=== PATIENT | female | born 1990 | race African-American/Black ===

== ENCOUNTER 2016-04-15 16:38 | Emergency (ER) | payer MEDICAID ==
--- NOTE | 2016-04-15 18:16 | ER Document Report ---
ED Medical Screen (RME) - General Chief Complaint: Rectal Bleeding Stated Complaint: BLOOD IN STOOL Notes: 26 yo female c/o rectal bleeding, bright red with BM. + lower abdominal pain after BM. no hx/o constripation. + hemorroids during childbirth. presently 15weeks . no fever, nausea/vomiting. TRAVEL OUTSIDE OF THE [place] IN LAST 30 DAYS: No - Related Data Allergies/Adverse Reactions: No Known Allergies Allergy (Verified 04/15/16 17:21) Past Medical History - Social History Chew tobacco use (# tins/day): No Frequency of alcohol use: None Drug Abuse: None Psychiatric Medical History: Reports: Hx Post Traumatic Stress Disorder Past Surgical History: Reports: Hx Breast Surgery - lumpectomy right breast - Immunizations Hx Diphtheria, Pertussis, Tetanus Vaccination: No Physical Exam - Vital signs Vitals: Temp Pulse Resp BP Pulse Ox 98.4 F 81 14 122/70 99 04/15/16 17:20 04/15/16 17:20 04/15/16 17:20 04/15/16 17:20 04/15/16 17:20 Course - Vital Signs Vital signs: Temp Pulse Resp BP Pulse Ox 98.4 F 81 14 122/70 99 04/15/16 17:20 04/15/16 17:20 04/15/16 17:20 04/15/16 17:20 04/15/16 17:20
--- NOTE | 2016-04-15 18:33 | ER Document Report ---
ED GI Bleed / Rectal Pain - General Chief Complaint: Rectal Bleeding Stated Complaint: BLOOD IN STOOL Time seen by provider: 18:33 Mode of Arrival: Ambulatory Information source: Patient Notes: 26 yo female had rectal bleeding after hard stool today. 15 weeks . Checked with toilet paper and knows that their was no vaginal bleeding. no cramps. does have anal pain. no hx hemorrhoids. TRAVEL OUTSIDE OF THE [place] IN LAST 30 DAYS: No - Related Data Allergies/Adverse Reactions: No Known Allergies Allergy (Verified 04/15/16 17:21) Past Medical History - General Information source: Patient - Social History Smoking Status: Never Smoker Chew tobacco use (# tins/day): No Frequency of alcohol use: None Drug Abuse: None Lives with: Spouse/Significant other Family History: Reviewed & Not Pertinent Patient has suicidal ideation: No Patient has homicidal ideation: No Psychiatric Medical History: Reports: Hx Post Traumatic Stress Disorder Past Surgical History: Reports: Hx Breast Surgery - lumpectomy right breast - Immunizations Hx Diphtheria, Pertussis, Tetanus Vaccination: No Review of Systems - Review of Systems Constitutional: No symptoms reported EENT: No symptoms reported Cardiovascular: No symptoms reported Respiratory: No symptoms reported Gastrointestinal: See HPI Genitourinary: No symptoms reported Female Genitourinary: No symptoms reported Musculoskeletal: No symptoms reported Skin: No symptoms reported Hematologic/Lymphatic: No symptoms reported Neurological/Psychological: No symptoms reported Physical Exam - Vital signs Vitals: Temp Pulse Resp BP Pulse Ox 98.4 F 81 14 122/70 99 04/15/16 17:20 04/15/16 17:20 04/15/16 17:20 04/15/16 17:20 04/15/16 17:20 Interpretation: Normal - General General appearance: Appears well, Alert - HEENT Head: Normocephalic, Atraumatic Eyes: Normal Pupils: PERRL Neck: Supple - Respiratory Respiratory status: No respiratory distress Chest status: Nontender Breath sounds: Normal Chest palpation: Normal - Cardiovascular Rhythm: Regular Heart sounds: Normal auscultation Murmur: No - Abdominal Inspection: Normal Distension: No distension Bowel sounds: Normal Tenderness: Nontender Organomegaly: Mass - gravid uterus, fht 154 - Rectal Tenderness: Yes Hemorrhoids: None Notes: anal fissure in canal with bearing down at 6 o clock - Back Back: Normal, Nontender. No: CVA tenderness - Extremities General upper extremity: Normal inspection, Nontender, Normal color, Normal ROM , Normal temperature General lower extremity: Normal inspection, Nontender, Normal color, Normal ROM , Normal temperature, Normal weight bearing. No: Citlaly's sign - Neurological Neuro grossly intact: Yes Cognition: Normal Orientation: AAOx4 Farnam Coma Scale Eye Opening: Spontaneous Jolie Coma Scale Verbal: Oriented Farnam Coma Scale Motor: Obeys Commands Jolie Coma Scale Total: 15 Speech: Normal Motor strength normal: LUE, RUE, LLE, RLE Sensory: Normal - Psychological Associated symptoms: Normal affect, Normal mood - Skin Skin Temperature: Warm Skin Moisture: Dry Skin Color: Normal Course - Re-evaluation Re-evalutation: 04/15/16 18:49 heart tones 154. hbg normal - Vital Signs Vital signs: Temp Pulse Resp BP Pulse Ox 97.3 F 91 16 114/72 99 04/15/16 19:03 04/15/16 19:03 04/15/16 19:03 04/15/16 19:03 04/15/16 19:03 - Laboratory Result Diagrams: 04/15/16 18:25 Laboratory results interpreted by me: 04/15/16 18:25 WBC 11.9 H Absolute Neutrophils 9.1 H Discharge - Discharge Clinical Impression: Anal fissure, Condition: Good Disposition: HOME, SELF-CARE Instructions: Anal Fissure ([facility]), ([facility]) Additional Instructions: anal fissure that bled will heal to er any conerns Referrals: AILYN AUSTIN MD [Primary Care Provider] - Follow up as needed
[2016-04-15 18:35] LABS: ABSOLUTE BASOPHILS # (AUTO) 0.1 10^3/uL (0.0-0.2); ABSOLUTE EOSINOPHILS # (AUTO) 0.4 10^3/uL (0.0-0.6); ABSOLUTE LYMPHOCYTES (AUTO) 1.8 10^3/uL (0.5-4.7); ABSOLUTE MONOCYTES (AUTO) 0.5 10^3/uL (0.1-1.4); ABSOLUTE NEUT (AUTO) 9.1 10^3/uL (1.7-8.2); BASOPHILS % (AUTO) 0.5 % (0-2); EOSINOPHILS % (AUTO) 3.6 % (0-6); HEMATOCRIT 37.6 % (36.0-47.0); HEMOGLOBIN 12.7 g/dL (12.0-15.5); HGB HCT DIFFERENCE 0.5; LYMPHOCYTES % (AUTO) 15.1 % (13-45); MEAN CORPUSCULAR HEMOGLOBIN 29.4 pg (27.0-33.4); MEAN CORPUSCULAR HGB CONC 33.9 g/dL (32.0-36.0); MEAN CORPUSCULAR VOLUME 87 fl (80-97); MONOCYTES % (AUTO) 4.4 % (3-13); RED BLOOD COUNT 4.33 10^6/uL (3.72-5.28); RED CELL DISTRIBUTION WIDTH 13.9 % (11.5-14.0); SEGMENTED NEUTROPHILS % (AUTO) 76.4 % (42-78); WHITE BLOOD COUNT 11.9 10^3/uL (4.0-10.5)
[2016-04-15 19:04] VITALS: BP 114/72
== END 2016-04-15 19:05 | disposition home or self-care (01) ==
LOC: ER 16:38
DX: O26.92 Pregnancy related conditions, unspecified, second trimester (principal); K60.2 Anal fissure, unspecified; Z3A.15 15 weeks gestation of pregnancy
CPT/HCPCS: 36415; 85025; 99283

== ENCOUNTER → 2016-08-26 | Outpatient (CLI) | payer MEDICAID ==
[2016-08-27 12:49] LABS: ABSOLUTE EOSINOPHILS # (AUTO) 0.3 10^3/uL (0.0-0.6); ABSOLUTE LYMPHOCYTES (AUTO) 1.7 10^3/uL (0.5-4.7); ABSOLUTE MONOCYTES (AUTO) 0.8 10^3/uL (0.1-1.4); ABSOLUTE NEUT (AUTO) 6.8 10^3/uL (1.7-8.2); BASOPHILS % (AUTO) 0.3 % (0-2); EOSINOPHILS % (AUTO) 3.4 % (0-6); HEMATOCRIT 34.9 % (36.0-47.0); HEMOGLOBIN 11.5 g/dL (12.0-15.5); HGB HCT DIFFERENCE -0.4; MEAN CORPUSCULAR HGB CONC 33.1 g/dL (32.0-36.0); MEAN CORPUSCULAR VOLUME 88 fl (80-97); MONOCYTES % (AUTO) 7.9 % (3-13); RED BLOOD COUNT 3.98 10^6/uL (3.72-5.28); RED CELL DISTRIBUTION WIDTH 14.2 % (11.5-14.0); SEGMENTED NEUTROPHILS % (AUTO) 70.4 % (42-78); WHITE BLOOD COUNT 9.7 10^3/uL (4.0-10.5)
[2016-08-27 13:42] LABS: APPEARANCE,URINE CLEAR; BILIRUBIN,URINE NEGATIVE (NEGATIVE); GLUCOSE, URINE NEGATIVE (NEGATIVE); KETONES,URINE NEGATIVE (NEGATIVE); LEUKOCYTE ESTERASE,URINE NEGATIVE (NEGATIVE); NITRITE,URINE NEGATIVE (NEGATIVE); PROTEIN,URINE NEGATIVE (NEGATIVE); URINE SPECIFIC GRAVITY 1.002; UROBILINOGEN,URINE NEGATIVE mg/dL (<2.0)
[2016-08-28 09:33] LABS: URINE BARBITURATES SCREEN NEGATIVE; URINE METHADONE SCREEN NEGATIVE; URINE OPIATES LOW NEGATIVE; URINE PHENCYCLIDINE SCREEN NEGATIVE
[2016-08-28 09:34] LABS: ANION GAP 12 (5-19); BLOOD UREA NITROGEN < 2 mg/dL (7-20); CARBON DIOXIDE 21 mmol/L (22-30); CHLORIDE 106 mmol/L (98-107); CREATININE RESULT 0.48 mg/dL (0.52-1.25); GLUCOSE 89 mg/dL (75-110); POTASSIUM 4.1 mmol/L (3.6-5.0); SODIUM 139.3 mmol/L (137-145)
== END ==
LOC: LC 11:39
PROVIDERS: ATTEND Specialist
PROC: 4A1HXCZ Monitoring of Products of Conception, Cardiac Rate, External Approach (ICD-10-PCS; principal; 2016-08-26)
DX: Z36 Encounter for antenatal screening of mother (principal)
CPT/HCPCS: 36415; 59025; 80048; 80307; 81001; 85025

== ENCOUNTER 2016-09-08 15:50 | Emergency (ER) | payer MEDICAID ==
[2016-09-08 16:38] VITALS: BP 127/88
[2016-09-08] MEDS ORDERED: NORMAL SALINE 1000 ML 1,000 ML IV ONE (17:15)
--- NOTE | 2016-09-08 17:31 | ER Document Report ---
ED Medical Screen (RME) - General Chief Complaint: Nausea/Vomiting/Diarrhea Stated Complaint: VOMITING,DIARRHEA Time Seen by Provider: 09/08/16 17:06 Mode of Arrival: Ambulatory Information source: Patient Notes: This is a 26-year-old female at 35 weeks gestation with twins who presents with vomiting and diarrhea for the past 10-14 days. She denies any fevers. She denies any abdominal pain although she does have lower back pressure today. No vaginal bleeding or loss of fluid. Good movement today. No fevers or chills. However she states she cannot tolerate anything by mouth. I have greeted and performed a rapid initial assessment of this patient. A comprehensive ED assessment and evaluation of the patient, analysis of test results and completion of the medical decision making process will be conducted by additional ED providers. TRAVEL OUTSIDE OF THE [place] IN LAST 30 DAYS: No - Related Data Allergies/Adverse Reactions: No Known Allergies Allergy (Verified 04/15/16 17:21) Past Medical History Renal/ Medical History: Denies: Hx Peritoneal Dialysis Psychiatric Medical History: Reports: Hx Post Traumatic Stress Disorder Past Surgical History: Reports: Hx Breast Surgery - lumpectomy right breast - Immunizations Hx Diphtheria, Pertussis, Tetanus Vaccination: No Physical Exam - Vital signs Vitals: Temp Pulse Resp BP Pulse Ox 98.9 F 120 H 20 127/88 H 99 09/08/16 16:33 09/08/16 16:33 09/08/16 16:33 09/08/16 16:33 09/08/16 16:33 - General General appearance: Appears well In distress: None - Respiratory Respiratory status: No respiratory distress. No: Retractions Breath sounds: Normal. No: Rales, Rhonchi, Wheezing - Cardiovascular Rhythm: Tachycardia Heart sounds: Normal auscultation, S1 appreciated, S2 appreciated - Abdominal Inspection: Gravid female Distension: No distension Bowel sounds: Normal Tenderness: Nontender Course - Re-evaluation Re-evalutation: 09/08/16 17:29 Case discussed with OB Dr. Zaragoza who agrees to have patient evaluated up on labor and delivery. - Vital Signs Vital signs: Temp Pulse Resp BP Pulse Ox 98.9 F 158 H 20 127/88 H 99 09/08/16 16:33 09/08/16 16:37 09/08/16 16:33 09/08/16 16:37 09/08/16 16:33 Doctor's Discharge - Discharge Clinical Impression: Nausea vomiting and diarrhea, Dehydration Twin gestation in third trimester Qualifiers: Multiple gestation type: unspecified Qualified Code(s): O30.003 - Twin , unspecified number of placenta and unspecified number of amniotic sacs, third trimester Condition: Stable Disposition: LABOR CHECK Additional Instructions: Proceed to Labor and Delivery unit now for IV fluids and further monitoring.
[2016-09-08 17:42] LABS: ABSOLUTE BASOPHILS # (AUTO) 0.1 10^3/uL (0.0-0.2); ABSOLUTE EOSINOPHILS # (AUTO) 0.1 10^3/uL (0.0-0.6); ABSOLUTE LYMPHOCYTES (AUTO) 2.7 10^3/uL (0.5-4.7); ABSOLUTE MONOCYTES (AUTO) 1.1 10^3/uL (0.1-1.4); ABSOLUTE NEUT (AUTO) 7.5 10^3/uL (1.7-8.2); BASOPHILS % (AUTO) 0.4 % (0-2); EOSINOPHILS % (AUTO) 1.3 % (0-6); HEMOGLOBIN 12.9 g/dL (12.0-15.5); HGB HCT DIFFERENCE -1.3; LYMPHOCYTES % (AUTO) 23.3 % (13-45); MEAN CORPUSCULAR HEMOGLOBIN 28.3 pg (27.0-33.4); MEAN CORPUSCULAR HGB CONC 32.2 g/dL (32.0-36.0); MEAN CORPUSCULAR VOLUME 88 fl (80-97); MONOCYTES % (AUTO) 9.8 % (3-13); RED BLOOD COUNT 4.55 10^6/uL (3.72-5.28); RED CELL DISTRIBUTION WIDTH 14.6 % (11.5-14.0); SEGMENTED NEUTROPHILS % (AUTO) 65.2 % (42-78); WHITE BLOOD COUNT 11.6 10^3/uL (4.0-10.5)
[2016-09-08 17:48] LABS: APPEARANCE,URINE CLEAR; BILIRUBIN,URINE NEGATIVE (NEGATIVE); GLUCOSE, URINE NEGATIVE (NEGATIVE); KETONES,URINE NEGATIVE (NEGATIVE); LEUKOCYTE ESTERASE,URINE MODERATE (NEGATIVE); NITRITE,URINE NEGATIVE (NEGATIVE); PROTEIN,URINE NEGATIVE (NEGATIVE); URINE SPECIFIC GRAVITY 1.001; UROBILINOGEN,URINE NEGATIVE mg/dL (<2.0)
[2016-09-08 18:09] LABS: ALANINE AMINOTRANSFERASE 18 U/L (9-52); ALBUMIN 3.3 g/dL (3.5-5.0); ALKALINE PHOSPHATASE 201 U/L (38-126); ANION GAP 9 (5-19); ASPARTATE AMINO TRANSFERASE 27 U/L (14-36); BILIRUBIN,DIRECT 0.2 mg/dL (0.0-0.4); BILIRUBIN,TOTAL 0.4 mg/dL (0.2-1.3); BLOOD UREA NITROGEN 2 mg/dL (7-20); CALCIUM 9.3 mg/dL (8.4-10.2); CARBON DIOXIDE 26 mmol/L (22-30); CHLORIDE 104 mmol/L (98-107); CREATININE RESULT 0.64 mg/dL (0.52-1.25); GLUCOSE 72 mg/dL (75-110); POTASSIUM 4.2 mmol/L (3.6-5.0); SODIUM 139.4 mmol/L (137-145); TOTAL PROTEIN 6.5 g/dL (6.3-8.2)
== END 2016-09-08 17:30 | disposition admitted as inpatient to this hospital (09) ==
LOC: ER 15:50
DX: O30.003 Twin pregnancy, unspecified number of placenta and unspecified number of amniotic sacs, third trimester (principal); O21.2 Late vomiting of pregnancy; E86.0 Dehydration; Z3A.35 35 weeks gestation of pregnancy
CPT/HCPCS: 36415; 80053; 81001; 85025; 99283

== ENCOUNTER 2016-09-08 17:37 | Outpatient (CLI) | payer MEDICAID ==
[2016-09-08] MEDS ORDERED: RINGERS SOLUTION,LACTATED 1,000 ML IV PRN ×2 (18:26→18:27)
[2016-09-08 19:10] LABS: URINE BARBITURATES SCREEN NEGATIVE; URINE METHADONE SCREEN NEGATIVE; URINE OPIATES LOW NEGATIVE; URINE PHENCYCLIDINE SCREEN NEGATIVE
--- NOTE | 2016-09-08 19:44 | Non Stress Test Report ---
Non Stress Test Datetime Report Generated by CPN: 09/08/2016 19:44 DEMOGRAPHIC Test Number: 1 EGA NST: 34.6 INDICATION Indication for Study: Ordered by Provider MONITORING Monitor Explained: Monitor Explained; Test Explained; Patient Verbalized Understanding Time on Monitor: 09/08/2016 17:57 Time off Monitor: 09/08/2016 19:08 NST Duration: 71 NST INTERVENTIONS NST Interventions: PO Hydration; IV Fluids; Reposition Patient Physician Notified NST: DrStephanie Nik BABY A: [id number] BABY A Movement : Present Contraction Frequency : occasional FHR Baseline : 140 Accelerations : 15X15 Decelerations : Prolonged Variability : Moderate 6-25bpm NST Review: Meets Criteria for Reactive NST NST Review and Verified By : Oneida Lara RN/Rodney Rodrigez RN NST Results: Reactive BABY B Movement: Present FHR Baseline: 135 Accelerations: 15X15 Decelerations: None Variability: Moderate 6-25bpm NST Review: Meets Criteria for Reactive NST NST Reviewed And Verified By: Rodney Rodrigez RN NST Results: Reactive NST REPORT Report Trigger: Send Report
== END 2016-09-08 19:25 | disposition home or self-care (01) ==
LOC: LC 17:37
PROVIDERS: ATTEND Obstetrics & Gynecology
PROC: 4A1HXCZ Monitoring of Products of Conception, Cardiac Rate, External Approach (ICD-10-PCS; principal; 2016-09-08)
DX: O76 Abnormality in fetal heart rate and rhythm complicating labor and delivery (principal); O30.003 Twin pregnancy, unspecified number of placenta and unspecified number of amniotic sacs, third trimester; Z3A.35 35 weeks gestation of pregnancy
CPT/HCPCS: 80307

== ENCOUNTER 2016-09-20 08:15 | Inpatient (IN) | payer MEDICAID ==
[2016-09-20 08:43] LABS: APPEARANCE,URINE CLOUDY; BILIRUBIN,URINE NEGATIVE (NEGATIVE); GLUCOSE, URINE NEGATIVE (NEGATIVE); KETONES,URINE NEGATIVE (NEGATIVE); LEUKOCYTE ESTERASE,URINE LARGE (NEGATIVE); NITRITE,URINE NEGATIVE (NEGATIVE); PROTEIN,URINE NEGATIVE (NEGATIVE); URINE SPECIFIC GRAVITY 1.001; UROBILINOGEN,URINE NEGATIVE mg/dL (<2.0)
[2016-09-20] MEDS ORDERED: OXYTOCIN/NORMAL SALINE 0 UNIT/0 ML RTUINJ ONE (08:43)
[2016-09-20] MEDS ORDERED: LIDOCAINE 1% INJ-PF (10 MG/ML) 30 ML SDV ONE (08:43)
[2016-09-20] MEDS ORDERED: MISOPROSTOL 0.2 MG TABLET ONE ×2 (08:43→12:06)
[2016-09-20 09:00] LABS: URINE BARBITURATES SCREEN NEGATIVE; URINE METHADONE SCREEN NEGATIVE; URINE OPIATES LOW NEGATIVE; URINE PHENCYCLIDINE SCREEN NEGATIVE
[2016-09-20] MEDS ORDERED: RINGERS SOLUTION,LACTATED 1,000 ML IV PRN (09:02)
[2016-09-20] MEDS ORDERED: MISOPROSTOL 0.2 MG TABLET PR PRN (09:05)
[2016-09-20] MEDS ORDERED: OXYTOCIN/NORMAL SALINE 1,000 ML IV PRN ×2 (09:05→12:39)
[2016-09-20] MEDS ORDERED: LIDOCAINE 1% INJ-PF (10 MG/ML) 30 ML SDV INJ ONE (09:07)
[2016-09-20 09:31] LABS: ABSOLUTE BASOPHILS # (AUTO) 0.1 10^3/uL (0.0-0.2); ABSOLUTE EOSINOPHILS # (AUTO) 0.1 10^3/uL (0.0-0.6); ABSOLUTE MONOCYTES (AUTO) 0.7 10^3/uL (0.1-1.4); EOSINOPHILS % (AUTO) 1.5 % (0-6); HEMATOCRIT 43.3 % (36.0-47.0); HGB HCT DIFFERENCE -1.3; LYMPHOCYTES % (AUTO) 29.9 % (13-45); MEAN CORPUSCULAR HEMOGLOBIN 28.8 pg (27.0-33.4); MEAN CORPUSCULAR HGB CONC 32.4 g/dL (32.0-36.0); MEAN CORPUSCULAR VOLUME 89 fl (80-97); MONOCYTES % (AUTO) 7.1 % (3-13); RED BLOOD COUNT 4.87 10^6/uL (3.72-5.28); SEGMENTED NEUTROPHILS % (AUTO) 60.5 % (42-78); WHITE BLOOD COUNT 9.9 10^3/uL (4.0-10.5)
[2016-09-20] MEDS ORDERED: BUPIVACAINE HCL 0.25 % INJ/PF (2.5 MG/1 ML) 30 ML VIAL INFIL ONE (09:37)
[2016-09-20] MEDS ORDERED: EPHEDRINE SULFATE INJ 50 MG/1 ML AMPULE IV PRN (09:37)
[2016-09-20] MEDS ORDERED: FENTANYL/BUPIVACAINE/NS/PF 100 ML EPI PRN (09:37)
[2016-09-20] MEDS ORDERED: BENZOIN/ALOE VERA/STORAX/TOLU TINCTURE 60 ML TP PRN (09:37)
[2016-09-20] MEDS ORDERED: FENTANYL CITRATE INJ/PF 100 MCG/2 ML AMPUL INJ PRN (09:44)
[2016-09-20] MEDS ORDERED: FENTANYL CITRATE INJ/PF 100 MCG/2 ML AMPUL ONE (09:44)
[2016-09-20] MEDS ORDERED: PHENYLEPHRINE HCL INJ/PF 10 MG/1 ML SDV ONE ×2 (09:44→10:25)
[2016-09-20] MEDS ORDERED: EPHEDRINE SULFATE INJ 50 MG/1 ML AMPULE ONE (09:44)
[2016-09-20] MEDS ORDERED: BUPIVACAINE HCL 0.25 % INJ/PF (2.5 MG/1 ML) 30 ML VIAL ONE (09:45)
[2016-09-20] MEDS ORDERED: FENTANYL/BUPIVACAINE/NS/PF 0 MCG/0 ML RTUINJ EPI ONE (09:45)
[2016-09-20] MEDS ORDERED: CEFAZOLIN 2 GM/D5W RTU 2 GM/50 ML RTUPB IV ONE (11:52)
[2016-09-20] MEDS ORDERED: OXYTOCIN 10 UNIT/ML VIAL ONE (12:05)
[2016-09-20 12:24] LABS: ARTERIAL BLOOD BASE EXCESS -2.3 mmol/L; ARTERIAL BLOOD O2 SATURATION 38.1 % (94-98)
[2016-09-20] MEDS ORDERED: PROMETHAZINE HCL INJ 25 MG/1 ML VIAL IV PRN ×3 (12:29→12:39)
[2016-09-20] MEDS ORDERED: MORPHINE SULFATE 10 MG/ML INJ IV PRN (12:29)
[2016-09-20] MEDS ORDERED: FENTANYL CITRATE INJ/PF 100 MCG/2 ML AMPUL IV PRN ×3 (12:29)
[2016-09-20] MEDS ORDERED: DIPHENHYDRAMINE HCL 50 MG/ML VIAL IV PRN (12:29)
[2016-09-20] MEDS ORDERED: MEPERIDINE HCL/PF INJ 25 MG/1 ML DISP.SYRIN IV PRN (12:29)
[2016-09-20] MEDS ORDERED: OXYCODONE-ACETAMINOPHEN 5-325 MG TABLET PO PRN ×3 (12:29→12:39)
[2016-09-20] MEDS ORDERED: CEFAZOLIN 2 GM/D5W RTU 50 ML IV ONE (12:38)
[2016-09-20] MEDS ORDERED: ACETAMINOPHEN 325 MG TABLET PO PRN (12:39)
[2016-09-20] MEDS ORDERED: ACETAMINOPHEN 100 ML IV PRN (12:39)
[2016-09-20] MEDS ORDERED: MEASLES,MUMPS&RUBELLA VACC/PF 0.5 ML VIAL SUBCUT PRN (12:39)
[2016-09-20] MEDS ORDERED: DIPH/PERTUSS(ACELL)/TETANUS VAC/PF 0.5 ML SYR (>=10YO) IM PRN (12:39)
[2016-09-20] MEDS ORDERED: SIMETHICONE 80 MG TAB.CHEW PO PRN (12:39)
[2016-09-20] MEDS ORDERED: MEPERIDINE HCL/PF INJ 25 MG/1 ML DISP.SYRIN ONE (12:53)
--- NOTE | 2016-09-20 13:09 | OPERATIVE REPORT E ---
Operative Report NAME: RADHA NAVAS : 1990 AGE: 26Y DATE OF SURGERY: ROOM: LR200 PREOPERATIVE DIAGNOSES: 1. Intrauterine at 36 weeks and 6 days. 2. DI/DI twin gestation. 3. Malpresentation of twin B. POSTOPERATIVE DIAGNOSES: 1. Intrauterine at 36 weeks and 6 days. 2. DI/DI twin gestation. 3. Malpresentation of twin B. OPERATION: 1. Low transverse hysterotomy. 2. section for twin B. SURGEON: RICARDO ZELAYA M.D. ANESTHESIA: DR. RODRIGUEZ WITH SPINAL. FINDINGS: Female in transverse left presentation with the right leg in the vaginal canal. ESTIMATED BLOOD LOSS: 800 mL for both section and vaginal delivery. SPECIMENS REMOVED: Placenta x2. INDICATIONS: This is a patient that came in in active labor with a DI/DI twin gestation. The first twin, twin A, delivered without difficulty vaginally. Awaiting twin B's arrival it was noted that there was a malpresentation. The patient had declined epidural previously. Was not able to manipulate the fetus into a proper position. We then took the patient to the OR, and patient received a spinal anesthesia. Once again, attempted manipulation of the fetus B into a presentation that would be adequate for delivery; however, the fetus still remained in a grossly transverse left position with a leg up to the hip in the vagina. PROCEDURE: The patient was taken to the operating room, prepared and draped in a normal sterile fashion in a supine position with a leftward *------*. Transverse skin incision was made with a scalpel and carried through the underlying layer of fascia. With the same scalpel the fascia was incised in the midline and extended laterally with surgeon finger fracture. The rectus muscle was divided. The peritoneal cavity was entered bluntly with surgeon finger fracture. Hysterotomy was nicked and extended laterally with surgeon finger fracture. The 's first foot was grasped, and an amniotomy was completed, and the second foot was grasped. The infant was then delivered using normal procedure, and it was then handed off to the awaiting pediatricians. After the cord was cut, cord gases were collected, cord blood was collected, and the placentas were removed manually. The uterus was closed with #0 Monocryl in a running locked fashion. A second layer of the same suture was used to imbricate to ensure hemostasis. The rectus muscle and peritoneum were reapproximated with 2-0 chromic mattress stitches. The fascia was closed with #0 Vicryl; the subcutaneous layer with plain catgut, and the skin was closed with 4-0 Vicryl. Patient tolerated the procedure well. Sponge, lap, and needle counts were correct x2. DICTATING PHYSICIAN: RICARDO ZELAYA M.D. [id number] [facility]#: [id number] ID: [id number] JOB#: [id number] ACCT: [id number] cc:RICARDO ZELAYA M.D. >
[2016-09-20] MEDS ORDERED: ACETAMINOPHEN 100 ML IV ONE (13:56)
--- NOTE | 2016-09-20 14:55 | Admission Physical ---
Datetime Report Generated by CPN: 09/20/2016 14:55 CURRENT ADMISSION Chief Complaint: Uterine Contractions Indication for Induction: Not Applicable Admit Impression- Other: twin gestation di/di Admit Plan: Admit to Unit; Initiate Labor Protocol Admit Plan- Other: ready for emergent operative delivery if necessary for either twin ALLERGIES Medication Allergies: No Medication Allergies: No Medication Allergies: No Known Allergies (09/20/2016) Medication Allergies: No Known Allergies (09/08/2016) Medication Allergies: No Known Allergies (04/15/2016) Latex: No Latex Allergies Latex: No Latex Allergies Food Allergies: n/a OBSTETRICAL HISTORY EDC: 10/14/2016 00:00 EDC: 10/03/2016 00:00 : 4 : 4 Para: 2 Para: 2 Term: 2 Term: 2 : 0 : 0 SAB: 1 SAB: 1 IAB: 0 IAB: 0 Ectopic: 0 Ectopic: 0 Livin Livin Cesareans: 0 Cesareans: 0 VBACs: 0 VBACs: 0 Multiple Births: 0 Multiple Births: 0 Gestational Diabetes: No Rh Sensitization: No Incompetent Cervix: No BENTON: No Infertility: No ART Treatment: No Uterine Anomaly: No IUGR: No Hx Previous C/S: No Macrosomia: No Hx Loss/Stillborn: No PIH: No Hx : No Placenta Previa/Abruption: No Depression/PP Depression: No PTL/PROM: No Post Hemorrhage: No Current Procedures: Ultrasound SEE RECORDS Alcohol: No Marijuana : No Cocaine: No Other Illicit Drugs: No Cigarettes: Never Smoker. [id number] MEDICAL HISTORY Diabetes: No Blood Transfusion: No Pulmonary Disease (Asthma, TB): No Breast Disease: No Hypertension: No Internet Specialist Surgery: No Heart Disease: No Hosp/Surgery: No Autoimmune Disorder: No Anesthetic Complications: No Kidney Disease: No Abnormal Pap Smear: No Neuro/Epilepsy: No Psychiatric Disorders: No Other Medical Diseases: No Hepatitis/Liver Disease: No Significant Family History: No Varicosities/Phlebitis: No Trauma/Violence : No Thyroid Dysfunction: No INFECTIOUS HISTORY Gonorrhea: No Genital Herpes: No Chlamydia: No Tuberculosis: No Syphilis: No Hepatitis: No HIV/AIDS Exposure: No Rash or Viral Illness: No HPV: No PHYSICAL EXAM General: Normal HEENT: Normal Neurologic: Normal Thyroid: Normal Heart: Normal Lungs: Normal Breast: Normal Back: Normal Abdomen: Normal Genitourinary Exam: Normal Extremities: Normal DTRs: Normal Pelvic Type: Adequate Vital Signs: Reviewed VAGINAL EXAM Dilatation: 8 Effacement: 100 Station: 0 MEMBRANES Pooling: Negative Membranes: Intact FETUS A EGA: 36.4 Monitoring: External US FHR- Baseline: 140 Variability: Moderate 6-25bpm Accelerations: 10X10 Decelerations: None FHR Category: Category I Estimated Weight (gm): 3500 Presentation: Vertex FETUS B Monitoring: External US Monitoring: External US Monitoring: External US Monitoring: External US Monitoring: External US Monitoring: External US Monitoring: External US Monitoring: External US Variability: Moderate 6-25bpm Accelerations: 10X10 Decelerations: None FHR Category: Category I Estimated Weight (gm): 3400 Presentation: Vertex PLANS FOR LABOR AND DELIVERY Labor and Delivery: None Pain Management: Epidural Feeding Preference: Formula Benefit of Breast Feed Discussed: Yes Circumcision: Yes INFORMED CONSENT Signature: with User ID: [email or web address]
--- NOTE | 2016-09-20 15:47 | Delivery Summary ---
Del Sum A-C Datetime Report Generated by CPN: 09/20/2016 15:47 DELIVERY PERSONNEL DELIVERY PERSONNEL: [phone] DELIVERY PERSONNEL: [phone] Delivery Doctor:: Pamela Amador MD Anesthesiologist:: Sara Milner MD Labor and Delivery Nurse:: Marine Bynum RNrestaurant worker Nurse:: Dasha Brenner RN Pipe Insulator Helper:: Tereza Weller RN Garbage Stoker:: Ricco Vitale MD Nursery Nurse:: Kaley Flores RN Nursery Nurse:: Alanna Servin RN Floor Scrubber/CUSTOMER RELATIONS SPECIALIST: Lola Ramirez CST Floor Scrubber/CUSTOMER RELATIONS SPECIALIST: Paul De León CST MATERNAL INFORMATION Delivery Anesthesia: Spinal Medications After Delivery: Pitocin Drip 20 Units/1000ml NSS Meds After Delivery Comment: Cytotec 400mcg PO by ENVIRONMENTAL COMPLIANCE ENGINEER Estimated Blood Loss (ml): 800 Maternal Complications: None LABOR SUMMARY EDC: 10/14/2016 00:00 EDC: 10/03/2016 00:00 No. Babies in Womb: 2 No. Babies in Womb: 2 Attempted: No Labor Anesthesia: None LABOR INFORMATION Reason for Induction: Not Applicable Onset of Labor: 09/20/2016 06:30 Complete Dilatation: 09/20/2016 10:57 Oxytocin: N/A Group B Beta Strep: Negative Antibiotics # of Doses: 0 Steroids Given: None Reason Steroids Not Administered: Not Applicable MEMBRANES Membranes Rupture Method: Spontaneous Rupture of Membranes: 09/20/2016 06:30 Length of Rupture (hr): 4.68 Amniotic Fluid Color: Clear Amniotic Fluid Amount: Scant Amniotic Fluid Odor: Normal STAGES OF LABOR Stage 1 hr: 4 Stage 1 min: 27 Stage 2 hr: 0 Stage 2 min: 14 Stage 3 hr: 0 Stage 3 min: 52 Total Time in Labor hr: 5 Total Time in Labor min: 33 VAGINAL DELIVERY Episiotomy: None Laceration Extension: N/A Laceration Type: None Laceration Repair: Not Applicable Sponge Count Correct: N/A Sharps Count Correct: N/A CSECTION DELIVERY Primary Indication: Breech Presentation Other Primary Indication: Twin B CSection Urgency: Non-Scheduled CSection Incidence: Primary Labor: Labor Elective: Nonelective CSection Incision: Lower Uterine Transverse BABY A INFORMATION Infant Delivery Date/Time: 09/20/2016 11:11 Method of Delivery: Vaginal Born in Route : No : N/A Forceps: N/A Vacuum Extraction: N/A Shoulder Dystocia : No PRESENTATION/POSITION BABY A Presentation: Cephalic Cephalic Presentation: Vertex Vertex Position: Right Occipital Anterior Breech Presentation: N/A PLACENTA INFORMATION BABY A Placenta Delivery Time : 09/20/2016 12:03 Placenta Method of Delivery: Spontaneous Placenta Status: Delivered SCORES BABY A Heart Rate 1 min: >100 bpm Resp Effort 1 min: Good Cry Reflex Irritability 1 min: Cough or Sneeze or Pulls Away Muscle Tone 1 min: Active Motion Color 1 min: Blue/Pale Resuscitation Effort 1 min: Tactile Stimulation SCORE 1 MIN: 8 Heart Rate 5 min: >100 bpm Resp Effort 5 min: Good Cry Reflex Irritability 5 min: Cough or Sneeze or Pulls Away Muscle Tone 5 min: Active Motion Color 5 min: Body [place], Extremities Blue Resuscitation Effort 5 min: N/A SCORE 5 MIN: 9 INFORMATION BABY A Gestational Age at Delivery: 36.4 Gestational Status: Late - 34- 36.6 Weeks Outcome : Liveborn Infant Condition : Stable Sex: Male IDENTIFICATION BABY A Verification Date/Time: 09/20/2016 15:13 ID Band Number: [id number] Mother's Name Verified: Yes RN Verifying : H. Fletcher, RN and A. Jordin, RN WEIGHT/LENGTH BABY A Birthweight (gm): 2150 Infant Weight (lb): 4 Weight (oz): 12 Length (in): 18.50 Length (cm): 46.99 CORD INFORMATION BABY A No. Cord Vessels: 3 Nuchal Cord : N/A Cord Blood Taken: Yes-For Storage (Mom's Blood type +) Suction: None ASSESSMENT BABY A Infant Complications: None Physical Findings at Delivery: Within Normal Limits Skin to Skin: No Transferred To: [facility] BABY B INFORMATION Infant Delivery Date/Time: 09/20/2016 12:00 Method of Delivery : Born in Route : No : N/A Forceps : N/A Vacuum Extraction: N/A Shoulder Dystocia : No SHOULDER DYSTOCIA BABY B Infant Delivery Date/Time: 09/20/2016 12:00 PRESENTATION/POSITION BABY B Presentation : Breech Cephalic Position : N/A Vertex Position: N/A Breech Position: Single Footling ROM/PLACENTA INFO BABY B Rupture of Membranes: 09/20/2016 11:57 Length of Rupture (hr): 0.05 Placenta Delivery Time : 09/20/2016 12:03 Placenta Method of Delivery: Spontaneous Placental Status : Delivered SCORES BABY B Heart Rate 1 min: >100 bpm Resp Effort 1 min: Slow, Irregular Reflex Irritability 1 min: No Response Muscle Tone 1 min: Flaccid Color 1 min: Blue/Pale Resuscitation Effort 1 min: Tactile Stimulation; PPV/NCPAP SCORE 1 MIN: 3 Heart Rate 5 min: >100 bpm Resp Effort 5 min: Good Cry Reflex Irritability 5 min: Cough or Sneeze or Pulls Away Muscle Tone 5 min: Active Motion Color 5 min: Body Bulp[place], Extremities Blue Resuscitation Effort 5 min: N/A SCORE 5 MIN: 9 INFANT INFORMATION BABY B Gestational Age at Delivery: 36.4 Gestational Status : Late - 34- 36.6 Weeks Infant Outcome : Liveborn Condition : Stable Infant Sex : Female IDENTIFICATION BABY B Verification Date/Time: 09/20/2016 15:15 ID Band Number : [id number] Mother's Name Verified: Yes Infant RN Verifying : Delfina Bynum, RN and A. Jordin, RN WEIGHT/LENGTH BABY B Birthweight (gm): 2490 Weight (lb) : 5 Infant Weight (oz): 8 Length (in): 19.50 Length (cm): 49.53 CORD INFORMATION BABY B No. Cord Vessels : 3 Nuchal Cord : N/A Cord Blood Taken : Yes-For Storage (Mom's Blood Type +) Suction : Mouth; Nose ASSESSMENT BABY B Complications : None Skin to Skin: No Care By : Dr. Vitale and Elen Flores RN SIGNATURES Signature: with User ID: [email or web address]
[2016-09-20] MEDS: HYDROMORPHONE HCL INJ/PF 2 MG/ML AMPULE IV PRN ×2 (15:52→19:41)
[2016-09-20] MEDS: KETOROLAC TROMETHAMINE INJ/PF 30 MG/1 ML SDV IV SCH ×2 (15:52→21:19)
[2016-09-20] MEDS ORDERED: ONDANSETRON HCL INJ/PF 4 MG/2 ML SDV ONE (16:39)
[2016-09-20] MEDS ORDERED: ONDANSETRON HCL INJ/PF 4 MG/2 ML SDV IV PRN (17:37)
[2016-09-20] MEDS: DOCUSATE SODIUM 100 MG CAPSULE PO SCH (17:51)
[2016-09-20] MEDS: OXYCODONE-ACETAMINOPHEN 5-325 MG TABLET PO PRN (17:51)
[2016-09-20] MEDS: AMPICILLIN SODIUM/SULBACTAM NA 3 GM in NORMAL SALINE 100 ML IV SCH (21:19)
[2016-09-20] MEDS ORDERED: AMPICILLIN SOD/SULBACTAM 3 GM VIAL IV SCH (22:00)
[2016-09-21] MEDS: OXYCODONE-ACETAMINOPHEN 5-325 MG TABLET PO PRN ×3 (00:29→23:53)
[2016-09-21] MEDS: AMPICILLIN SODIUM/SULBACTAM NA 3 GM in NORMAL SALINE 100 ML IV SCH ×2 (05:47→13:00)
[2016-09-21] MEDS: KETOROLAC TROMETHAMINE INJ/PF 30 MG/1 ML SDV IV SCH (05:47)
[2016-09-21 06:33] LABS: HEMATOCRIT 38.7 % (36.0-47.0); HEMOGLOBIN 12.3 g/dL (12.0-15.5); HGB HCT DIFFERENCE -1.8; MEAN CORPUSCULAR HEMOGLOBIN 28.4 pg (27.0-33.4); MEAN CORPUSCULAR HGB CONC 31.7 g/dL (32.0-36.0); MEAN CORPUSCULAR VOLUME 90 fl (80-97); RED BLOOD COUNT 4.32 10^6/uL (3.72-5.28); RED CELL DISTRIBUTION WIDTH 15.1 % (11.5-14.0)
--- NOTE | 2016-09-21 08:50 | PDOC PROGRESS REPORT ---
Subjective-OB Subjective: Post Delivery Day: 26 year old. Denies any needs at this time Sitting up in bed, mother in room, feeling good, taking diet well, ambulating, bottle feeding, voiding, scant lochia Physical Exam (OB) Vital Signs: Temp Pulse Resp BP Pulse Ox 98.4 F 84 15 124/78 100 09/21/16 08:15 09/21/16 08:15 09/21/16 08:15 09/21/16 08:15 09/21/16 08:15 Intake & Output 09/20/16 09/21/16 09/22/16 06:59 06:59 06:59 Intake Total 3250 Output Total 3240 Balance 10 Weight 79 kg - PIH/Pre-Eclampsia Clonus: Negative - Dressing Removed: No - honeycomb dressing Incision: Dressing Closure Type: opsite - Lochia Lochia Amount: Small 10-25 ml Lochia Color: Rubra/Red - Abdomen Description: Tender, Soft Hernia Present: No Fundal Description: Firm, Midline Fundal Height: u/u - u/2 Objective-Diagnostic Laboratory: 09/21/16 06:11 09/20/16 09/20/16 09/20/16 08:28 09:00 09:00 WBC 9.9 RBC 4.87 Hgb 14.0 Hct 43.3 MCV 89 MCH 28.8 MCHC 32.4 RDW 15.0 H Plt Count 111 L Seg Neutrophils % 60.5 Lymphocytes % 29.9 Monocytes % 7.1 Eosinophils % 1.5 Basophils % 1.0 Absolute Neutrophils 6.0 Absolute Lymphocytes 3.0 Absolute Monocytes 0.7 Absolute Eosinophils 0.1 Absolute Basophils 0.1 Carbonic Acid HCO3/H2CO3 Ratio ABG pH ABG pCO2 ABG pO2 ABG HCO3 ABG O2 Saturation ABG Base Excess FiO2 Urine Color STRAW Urine Appearance CLOUDY Urine pH 6.0 Ur Specific Grawn 1.001 Urine Protein NEGATIVE Urine Glucose (UA) NEGATIVE Urine Ketones NEGATIVE Urine Blood LARGE H Urine Nitrite NEGATIVE Ur Leukocyte Esterase LARGE H Blood Type A POSITIVE Antibody Screen NEGATIVE 09/20/16 09/21/16 12:02 06:11 WBC 15.0 H RBC 4.32 Hgb 12.3 Hct 38.7 MCV 90 MCH 28.4 MCHC 31.7 L RDW 15.1 H Plt Count 101 L Seg Neutrophils % Lymphocytes % Monocytes % Eosinophils % Basophils % Absolute Neutrophils Absolute Lymphocytes Absolute Monocytes Absolute Eosinophils Absolute Basophils Carbonic Acid 1.47 H HCO3/H2CO3 Ratio 16:1 ABG pH 7.32 L ABG pCO2 48.7 H ABG pO2 24.2 L* ABG HCO3 24.3 ABG O2 Saturation 38.1 L ABG Base Excess -2.3 FiO2 CORD BLOOD Urine Color Urine Appearance Urine pH Ur Specific Grawn Urine Protein Urine Glucose (UA) Urine Ketones Urine Blood Urine Nitrite Ur Leukocyte Esterase Blood Type Antibody Screen Assessment and Plan(PN) - Assessment and Plan (1) delivery delivered Is this a current diagnosis for this admission?: Yes (2) Twin , mate liveborn Is this a current diagnosis for this admission?: Yes (3) Acute blood loss anemia Is this a current diagnosis for this admission?: Yes (4) Vaginal delivery Is this a current diagnosis for this admission?: Yes - Time Spent with Patient Time with patient: Less than 15 minutes Medications reviewed and adjusted accordingly: Yes - Disposition Anticipated Discharge: Home Within: within 48 hours - encouraged to wear bra, repeat CBC in AM
[2016-09-21] MEDS: PRENATAL VITAMIN W-O CA NO5/FE FUMARATE/FA CAPSULE PO SCH (10:46)
[2016-09-21] MEDS: DOCUSATE SODIUM 100 MG CAPSULE PO SCH ×2 (10:46→17:21)
[2016-09-21] MEDS: IBUPROFEN 800 MG TABLET PO SCH ×3 (12:58→23:51)
[2016-09-21] MEDS ORDERED: DIPHENHYDRAMINE HCL 25 MG CAPSULE PO PRN (18:15)
[2016-09-21] MEDS ORDERED: DIPHENHYDRAMINE HCL 25 MG CAPSULE ONE (18:17)
[2016-09-22] MEDS: OXYCODONE-ACETAMINOPHEN 5-325 MG TABLET PO PRN (03:32)
[2016-09-22] MEDS: IBUPROFEN 800 MG TABLET PO SCH ×3 (06:06→17:23)
[2016-09-22 08:17] LABS: HEMATOCRIT 37.2 % (36.0-47.0); HEMOGLOBIN 11.7 g/dL (12.0-15.5); HGB HCT DIFFERENCE -2.1; MEAN CORPUSCULAR HEMOGLOBIN 28.2 pg (27.0-33.4); MEAN CORPUSCULAR HGB CONC 31.5 g/dL (32.0-36.0); MEAN CORPUSCULAR VOLUME 90 fl (80-97); RED BLOOD COUNT 4.15 10^6/uL (3.72-5.28); RED CELL DISTRIBUTION WIDTH 15.1 % (11.5-14.0); WHITE BLOOD COUNT 15.5 10^3/uL (4.0-10.5)
--- NOTE | 2016-09-22 08:34 | PDOC PROGRESS REPORT ---
Subjective-OB Subjective: Post Delivery Day: 26 year old. Denies any needs at this time. Ready to go home. Physical Exam (OB) Vital Signs: Temp Pulse Resp BP Pulse Ox 98.3 F 86 18 109/69 98 09/22/16 03:12 09/22/16 03:12 09/22/16 03:12 09/22/16 03:12 09/22/16 03:12 Intake & Output 09/21/16 09/22/16 09/23/16 06:59 06:59 06:59 Intake Total 3250 440 Output Total 3240 480 Balance 10 -40 Weight 79 kg - PIH/Pre-Eclampsia Clonus: Negative - Dressing Removed: No - opsite Incision: Dressing Closure Type: opsite - Lochia Lochia Amount: Small 10-25 ml Lochia Color: Rubra/Red - Abdomen Description: Soft, Round Hernia Present: No Bowel Sounds: Normoactive Flatus Presence: Present Stool: No Fundal Description: Firm, Midline Fundal Height: u/u - u/2 Objective-Diagnostic Laboratory: 09/22/16 07:42 09/22/16 07:42 WBC 15.5 H RBC 4.15 Hgb 11.7 L Hct 37.2 MCV 90 MCH 28.2 MCHC 31.5 L RDW 15.1 H Plt Count 123 L Assessment and Plan(PN) - Time Spent with Patient Medications reviewed and adjusted accordingly: Yes - Disposition Anticipated Discharge: Home
--- NOTE | 2016-09-22 08:43 | PDOC DISCHARGE SUMMARY ---
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 Is this a current diagnosis for this admission?: Yes (4) delivery delivered Is this a current diagnosis for this admission?: Yes (5) Twin , mate liveborn Is this a current diagnosis for this admission?: Yes Discharge Data - Discharge Medication Home Medications: Pnv95/Iron Fum/Folic Acid [ Caplet] 1 tab PO DAILY 11/13/15 Docusate Sodium [Colace 100 mg Capsule] 100 mg PO BID #30 capsule 09/22/16 Ibuprofen [Motrin 800 mg Tablet] 800 mg PO Q6 #30 tablet 09/22/16 Oxycodone HCl/Acetaminophen [Percocet 5-325 mg Tablet] 1 tab PO Q4HP PRN #20 tablet 09/22/16 Gestational Age: 36.4 wks Reason(s) for Admission: Onset of Labor Intrapartum Procedure(s): Spontaneous Vaginal Delivery, : Low Cervical, Transverse - Marion Data Baby 1 Male at 1 minute: 8 at 5 minutes: 9 Weight: 2.155 kg Home with Mother: Yes Complications: No Baby 2 Female at 1 minute: 3 at 5 minutes: 9 Weight: 2.495 kg Home with Mother: Yes Complications: No - Diagnosis Test Laboratory: Temp Pulse Resp BP Pulse Ox 98.3 F 86 18 109/69 98 09/22/16 03:12 09/22/16 03:12 09/22/16 03:12 09/22/16 03:12 09/22/16 03:12 09/20/16 09/20/16 09/21/16 08:28 09:00 06:11 RBC 4.87 4.32 Hgb 14.0 12.3 Hct 43.3 38.7 Urine Opiates Screen NEGATIVE 09/22/16 07:42 RBC 4.15 Hgb 11.7 L Hct 37.2 Urine Opiates Screen - Discharge information/Instructions Discharge Activity: Activity As Tolerated, Balance Activity w/Rest, No Lifting Over 10 Pounds, No Lifting/Push/Pulling, Non-Ambulatory Child, Pelvic Rest, No tub bath Discharge Diet: Regular Disposition: HOME, SELF-CARE Follow up with: [facility] in: 1, Weeks
[2016-09-22] MEDS: PRENATAL VITAMIN W-O CA NO5/FE FUMARATE/FA CAPSULE PO SCH (09:51)
[2016-09-22] MEDS: DOCUSATE SODIUM 100 MG CAPSULE PO SCH ×2 (09:51→17:23)
[2016-09-22 16:19] VITALS: BP 123/84
== END 2016-09-22 19:00 | disposition home or self-care (01) | DRG 765 ==
LOC: LC 08:15 → LR 08:46 → 2S 14:45
PROVIDERS: ADMIT Obstetrics & Gynecology; ATTEND Obstetrics & Gynecology
PROC: 10D00Z1 Extraction of Products of Conception, Low, Open Approach (ICD-10-PCS; principal; 2016-09-20)
PROC: 10E0XZZ Delivery of Products of Conception, External Approach (ICD-10-PCS; 2016-09-20)
PROC: 4A1HXCZ Monitoring of Products of Conception, Cardiac Rate, External Approach (ICD-10-PCS; 2016-09-20)
DX: O64.8XX2 Obstructed labor due to other malposition and malpresentation, fetus 2 (principal); O60.14X0 Preterm labor third trimester with preterm delivery third trimester, not applicable or unspecified; D62 Acute posthemorrhagic anemia; O30.043 Twin pregnancy, dichorionic/diamniotic, third trimester; O99.02 Anemia complicating childbirth; Z3A.36 36 weeks gestation of pregnancy; Z37.2 Twins, both liveborn
CPT/HCPCS: 1961; 36415; 80307; 81005; 82803; 85025; 85027; 86592; 86850; 86900; 86901; 88307; 90707; 94799; J0131; J0295; J0690; J1170; J1885; J2175; J2370; J2405; J2590; J3010; J3490

== ENCOUNTER → 2018-01-19 | Outpatient (CLI) | payer MEDICAID ==
--- NOTE | 2018-01-19 15:31 | RADIOLOGY REPORT (SQ) ---
EXAM DESCRIPTION: LUMBAR SPINE COMPLETE COMPLETED DATE/TIME: 01/19/2018 3:08 pm REASON FOR STUDY: CHRONIC MIDLINE LBP, WITH SCIATICA PRESENCE UNSPECIFIED Z00.01 ENCOUNTER FOR [facility] ADULT MEDICAL EXAM W ABNORMAL F M54.5 LOW BACK PAIN COMPARISON: None. NUMBER OF VIEWS: Five views including obliques. TECHNIQUE: AP, lateral, oblique, and sacral radiographic images acquired of the lumbar spine. LIMITATIONS: None. FINDINGS: MINERALIZATION: Normal. SEGMENTATION: Normal. No transitional anatomy. ALIGNMENT: Normal. VERTEBRAE: Maintained height. No fracture or worrisome bone lesion. DISCS: Preserved height. No significant osteophytes or end plate irregularity. POSTERIOR ELEMENTS: Pedicles and facets are intact. No pars defect or posterior arch defects. HARDWARE: None in the spine. PARASPINAL SOFT TISSUES: Normal. PELVIS: Not included in the field of view. Mild bilateral SI joint sclerosis right greater than left OTHER: No other significant finding. 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
== END ==
LOC: OD 14:33
PROVIDERS: ATTEND Nurse Practitioner Family
DX: M54.5 Low back pain (principal)
CPT/HCPCS: 72110

== ENCOUNTER → 2018-04-21 | Outpatient (CLI) | payer MEDICAID ==
[2018-04-21 19:19] LABS: CHLAM PCR NOT DETECTED (NOT DETECT); GON PCR NOT DETECTED (NOT DETECT)
== END ==
LOC: LAB 17:13
PROVIDERS: ATTEND Nurse Practitioner Acute Care
DX: R30.0 Dysuria (principal)
CPT/HCPCS: 87086; 87088; 87186; 87491; 87591

== ENCOUNTER 2018-06-26 03:11 | Emergency (ER) | payer MEDICAID ==
[2018-06-26 06:23] VITALS: BP 119/71
[2018-06-26] MEDS ORDERED: ONDANSETRON 4 MG TAB.RAPDIS PO ONE (08:02)
[2018-06-26 09:10] LABS: A TYPE INFLUENZA AG POSITIVE (NEGATIVE); B INFLUENZA AG NEGATIVE (NEGATIVE)
--- NOTE | 2018-06-26 09:38 | ER Document Report ---
ED General - General Chief Complaint: Abdominal Pain Stated Complaint: ABDOMINAL PAIN Time Seen by Provider: 06/26/18 07:53 Primary Care Provider: CYNDY SABA MD [Primary Care Provider] - Follow up as needed TRAVEL OUTSIDE OF THE [place] IN LAST 30 DAYS: No - HPI Notes: Patient presents emergency department for evaluation of multiple symptoms. She feels nauseated. She is coughing. She has a sore throat. She complains of body aches. She has had no actual emesis. Urinating normally, no diarrhea. She has had some chills but has not measured a true temperature. She states she is also had some abnormal vaginal bleeding, spotting here and there. She is due to start her period. She is currently sexually active, asks for a test. - Related Data Allergies/Adverse Reactions: No Known Allergies Allergy (Verified 06/26/18 03:16) Past Medical History - General Information source: Patient - Social History Smoking Status: Never Smoker Frequency of alcohol use: None Drug Abuse: None Family History: Reviewed & Not Pertinent Patient has suicidal ideation: No Patient has homicidal ideation: No Renal/ Medical History: Denies: Hx Peritoneal Dialysis Psychiatric Medical History: Reports: Hx Post Traumatic Stress Disorder Past Surgical History: Reports: Hx Breast Surgery - lumpectomy right breast - Immunizations Hx Diphtheria, Pertussis, Tetanus Vaccination: No Review of Systems - Review of Systems Constitutional: Chills EENT: See HPI Cardiovascular: No symptoms reported Respiratory: See HPI Gastrointestinal: See HPI Musculoskeletal: See HPI Skin: No symptoms reported Neurological/Psychological: No symptoms reported Physical Exam - Vital signs Vitals: Temp Pulse Resp BP Pulse Ox 98.9 F 98 20 119/71 99 06/26/18 06:22 06/26/18 06:22 06/26/18 06:22 06/26/18 06:22 06/26/18 06:22 - Notes Notes: Vital signs reviewed, please refer to chart. Patient is normocephalic, atraumatic. Pupils equal round, reactive to light. Pharynx is erythematous with scant exudates noted bilaterally. No asymmetry. Neck is supple without meningismus. Tender anterior cervical adenopathy noted. Heart is regular rate and rhythm. Lungs are clear to auscultation bilaterally. Abdomen is soft, nontender, normoactive bowel sounds throughout. Extremities without cyanosis, clubbing, edema. Peripheral pulses are equal. Skin is warm and dry. Patient is awake, alert, neurological exam is nonfocal. Course - Re-evaluation Re-evalutation: 06/26/18 09:36 Patient presents emergency department for evaluation. Laboratory investigations reveal a positive influenza A as well as a positive strep screen. We will treat her with antibiotics. Her test is negative. We will send her home with Zofran as well. She is told supportive care only for the influenza. She is to follow-up with primary care in 1-2 weeks. She is to return to the emergency department with worsening or new concerning symptoms. - Vital Signs Vital signs: Temp Pulse Resp BP Pulse Ox 98.9 F 98 20 119/71 99 06/26/18 06:22 06/26/18 06:22 06/26/18 06:22 06/26/18 06:22 06/26/18 06:22 Discharge - Discharge Clinical Impression: Influenza A, Streptococcal pharyngitis Disposition: HOME, SELF-CARE Instructions: Influenza ([facility]) [phone], Strep Throat ([facility]) Additional Instructions: Take all the antibiotics as prescribed until gone. Zofran as needed for nausea. Stay well-hydrated, rest. Follow-up with your primary care doctor in 1-2 weeks. Return to the emergency department with worsening or new concerning symptoms. Referrals: CYNDY SABA MD [Primary Care Provider] - Follow up as needed
== END 2018-06-26 09:47 | disposition home or self-care (01) ==
LOC: ER 03:11
DX: J10.1 Influenza due to other identified influenza virus with other respiratory manifestations (principal); R10.9 Unspecified abdominal pain; R11.0 Nausea; R05 Cough
CPT/HCPCS: 99284; 87880; 81025; 87804; S0119

== ENCOUNTER → 2018-08-05 | Outpatient (CLI) | payer MEDICAID ==
--- NOTE | 2018-08-05 13:22 | RADIOLOGY REPORT (SQ) ---
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 TECHNIQUE: Multiplanar imaging includes noncontrasted T1, T2, FLAIR, diffusion with ADC map and post gadolinium contrast T1 sequences. Images stored on PACS. CONTRAST TYPE AND DOSE: 15 mL Dotarem. RENAL FUNCTION: Not indicated. ACR Type II contrast agent associated with few, if any, unconfounded cases of NSF LIMITATIONS: Limiting motion. This necessitated multiple repeat scans. Overall the study remains a t least mildly limited. FINDINGS: ANATOMY: No anomalies. Normal vascular flow voids. Pituitary fossa normal. CSF SPACES: Normal in size and contour. No hemorrhage. CEREBRUM: Focal encephalomalacia in the left frontal lobe. No hemorrhage or mass or shift. No enhan cing lesions. POSTERIOR FOSSA: No signal alteration. No hemorrhage. No edema, masses, or mass effect. Internal juan ramon tory canals, cerebellopontine angles, mastoids normal. No enhancing lesions. No abnormal enhancement post contrast. DIFFUSION IMAGING: Negative for acute or subacute infarction. ORBITS: No masses. Globes normal. PARANASAL SINUSES: No fluid levels. Mucosa normal. OTHER: No other significant finding. IMPRESSION: 1. Mildly limiting motion. 2. 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 3. No acute or suspicious intracranial abnormality detected. EVIDENCE OF ACUTE STROKE: NO. TECHNICAL DOCUMENTATION: JOB ID: [id number] [employer]- All Rights Reserved Reading location - IP/workstation name: [email or web address]
== END ==
LOC: RAD 11:33
PROVIDERS: ATTEND Nurse Practitioner Family
DX: G51.0 Bell's palsy (principal)
CPT/HCPCS: 70553; A9576

== ENCOUNTER 2018-11-18 09:02 | Emergency (ER) | payer MEDICAID ==
[2018-11-18 09:23] VITALS: BP 113/60
[2018-11-18] MEDS ORDERED: IBUPROFEN 800 MG TABLET PO ONE (09:55)
--- NOTE | 2018-11-18 09:58 | ER Document Report ---
HPI - HPI Patient complains to provider of: sore throat Time Seen by Provider: 11/18/18 09:49 Onset: Last week Onset/Duration: Persistent Severity: Mild Pain Level: 1 Context: 28-year-old female presents the emergency department with complaints of sore throat. She reports she believes the symptoms started last week with a headache that her ear started hurting and now her throat is sore. She reports she is eating and drinking without problems. No exposure to strep as far she knows. Denies fever vomiting diarrhea. Reports she does have kids in daycare they have had runny nose. Also complains that her sides hurt but she believes that is from working out. Denies pain with void. She took Advil without relief of symptoms. Associated Symptoms: None Exacerbated by: Food Relieved by: Denies Similar symptoms previously: No Recently seen / treated by doctor: No - EENT EENT: REPORTS: Sore Throat, Ear Pain - NEURO Neurology: REPORTS: Headache - REPRODUCTIVE Reproductive: DENIES: : Past Medical History - General Information source: Patient Last Menstrual Period: october - Social History Smoking Status: Never Smoker Chew tobacco use (# tins/day): No Frequency of alcohol use: Occasional Drug Abuse: None Lives with: Family Family History: Reviewed & Not Pertinent Patient has suicidal ideation: No Patient has homicidal ideation: No Renal/ Medical History: Denies: Hx Peritoneal Dialysis Psychiatric Medical History: Reports: Hx Post Traumatic Stress Disorder Past Surgical History: Reports: Hx Breast Surgery - lumpectomy right breast - Immunizations Hx Diphtheria, Pertussis, Tetanus Vaccination: No Vertical Provider Document - CONSTITUTIONAL Agree With Documented VS: Yes Exam Limitations: No Limitations General Appearance: WD/WN, No Apparent Distress - INFECTION CONTROL TRAVEL OUTSIDE OF THE [place] IN LAST 30 DAYS: No - HEENT HEENT: Atraumatic, Normal ENT Exam, Normocephalic. negative: Conjuctival Injection, Pharyngeal Exudate, Pharyngeal Erythema, Tympanic Membrane Red, Tympanic Membrane Bulging - NECK Neck: Normal Inspection, Supple. negative: Lymphadenopathy-Left, Lymphadenopathy-Right - RESPIRATORY Respiratory: Breath Sounds Normal, No Respiratory Distress - CARDIOVASCULAR Cardiovascular: Regular Rate, Regular Rhythm - GI/ABDOMEN Gastrointestinal: Abdomen Soft, Abdomen Non-Tender - BACK Back: negative: CVA Tenderness-Right, CVA Tenderness-Left - MUSCULOSKELETAL/EXTREMETIES Musculoskeletal/Extremeties: MAESTELA, FROM, Non-Tender - NEURO Level of Consciousness: Awake, Alert, Appropriate Motor/Sensory: No Motor Deficit - DERM Integumentary: Warm, Dry Course - Re-evaluation Re-evalutation: 11/18/18 09:56 28-year-old female with complaints of sore throat for the past week. Patient is alert and oriented no distress. Speaks in a clear voice. Patient was instructed on strep test Motrin for pain. 11/18/18 10:36 Strep negative. Patient instructed on throat culture pending. Instructed to follow-up with primary care provider for recheck within 1 week. She verbalized understanding to all instructions. Dictation of this chart was performed using voice recognition software; therefore, there may be some unintended grammatical errors. - Vital Signs Vital signs: Temp Pulse Resp BP Pulse Ox 98.8 F 85 18 113/60 100 11/18/18 09:23 11/18/18 09:23 11/18/18 09:23 11/18/18 09:23 11/18/18 09:23 Discharge - Discharge Clinical Impression: Sore throat Condition: Stable Disposition: HOME, SELF-CARE Instructions: Sore Throat ([facility]) Additional Instructions: *You have been evaluated for a sore throat *T the strep test was negative. A throat culture is pending. Throat culture takes 2 to 3 days to run. If the throat culture is positive you will be contacted should you need antibiotics. *Warm salt water gargles and throat lozenges for comfort *Do not let anyone drink/eat after you *Good hand washing *Follow-up with a primary care provider within one week for recheck *Return to ED for worsening condition change, needs Referrals: OH LAUREN, SANDRA [Primary Care Provider] - Follow up in 1 week
== END 2018-11-18 10:45 | disposition home or self-care (01) ==
LOC: ER 09:02
DX: J02.9 Acute pharyngitis, unspecified (principal); H92.09 Otalgia, unspecified ear; R51 Headache
CPT/HCPCS: 99283; 87070; 87880; J3490

== ENCOUNTER 2018-11-29 13:28 | Emergency (ER) | payer MEDICAID ==
[2018-11-29 13:35] VITALS: BP 119/74
[2018-11-29] MEDS ORDERED: ACETAMINOPHEN 325 MG TABLET PO ONE (13:54)
--- NOTE | 2018-11-29 13:54 | ER Document Report ---
HPI - HPI Time Seen by Provider: 11/29/18 13:43 Pain Level: 4 Notes: Patient is a 28-year-old female with no significant past medical history who presents complaining of left lateral ankle pain status post twist injury prior to arrival. Patient states that she was stepping backwards when her ankle twisted. She has had pain since then. Pain does not radiate. She has noticed some minimal swelling to the lateral ankle. No other concerns or complaints. Denies drug allergies. Denies any headache, fever, URI, sore throat, chest pain, palpitations, syncope, cough, shortness of breath, wheeze, dyspnea, abdominal pain, nausea/vomiting/diarrhea, urinary retention, dysuria, hematuria, loss of control of bowel or bladder, numbness/tingling, saddle anesthesia, muscle paralysis/weakness, or rash. - ROS Systems Reviewed and Negative: Yes All other systems reviewed and negative - CONSTITUTIONAL Constitutional: DENIES: Fever, Chills - EENT EENT: DENIES: Sore Throat, Ear Pain, Eye problems - NEURO Neurology: DENIES: Headache, Weakness, Vision blurred, Dizzinesss / Vertigo - CARDIOVASCULAR Cardiovascular: DENIES: Chest pain - RESPIRATORY Respiratory: DENIES: Trouble Breathing, Coughing - GASTROINTESTINAL Gastrointestinal: DENIES: Abdominal Pain, Black / Bloody Stools - URINARY Urinary: DENIES: Dysuria, Urgency, Frequency - REPRODUCTIVE Reproductive: DENIES: : - MUSCULOSKELETAL Musculoskeletal: REPORTS: Extremity pain - L ankle Past Medical History - Social History Smoking Status: Never Smoker Chew tobacco use (# tins/day): No Frequency of alcohol use: None Drug Abuse: None Family History: Reviewed & Not Pertinent Patient has suicidal ideation: No Patient has homicidal ideation: No Renal/ Medical History: Denies: Hx Peritoneal Dialysis Psychiatric Medical History: Reports: Hx Post Traumatic Stress Disorder Past Surgical History: Reports: Hx Breast Surgery - lumpectomy right breast - Immunizations Hx Diphtheria, Pertussis, Tetanus Vaccination: No Vertical Provider Document - CONSTITUTIONAL Agree With Documented VS: Yes Notes: PHYSICAL EXAMINATION: GENERAL: Well-appearing, well-nourished and in no acute distress. LUNGS: Breath sounds clear to auscultation bilaterally and equal. No wheezes rales or rhonchi. HEART: Regular rate and rhythm without murmurs, rubs, gallops. Musculoskeletal: Lt foot/ankle: + mild lateral ankle swelling. No ecchymosis or deformity. FROM to passive/active. Strength 5+/5. N/V intact distal. + tenderness to the lateral malleolus and area of the ATFL. No bony tenderness of the foot of prox fibula. Achilles intact. Lis Franc maneuver neg. Anterior drawer neg. Extremities: No cyanosis, clubbing, or edema b/l. Peripheral pulses 2+. Capillary refill less than 3 seconds. NEUROLOGICAL: Normal speech, limping gait. Normal sensory, motor exams PSYCH: Normal mood, normal affect. SKIN: Warm, Dry, normal turgor, no rashes or lesions noted. - INFECTION CONTROL TRAVEL OUTSIDE OF THE [place] IN LAST 30 DAYS: No Course - Re-evaluation Re-evalutation: 11/29/18 Patient is an afebrile, well-hydrated, 28-year-old female who presents to the ED with left ankle pain which I suspect to be a sprain versus strain. Vitals are acceptable without any significant tachycardia, tachypnea, or hypoxia. PE is otherwise unremarkable for any neurovascular compromise, obvious tendon/ligament rupture, obvious fracture/dislocation, septic joint. X-ray was unremarkable for any acute pathology. Ankle stirrup and crutches were provided today. Patient is nontoxic-appearing. Patient is able to ambulate and weight-bear although she is limping. No other labs or imaging warranted at this time based on H&P. Conservative measures otherwise for symptoms. Recheck with your PCM in 3-5 da ys. Consider consult orthopedics. Return to the ED with any worsening/concerning symptoms otherwise as reviewed in discharge. Patient is in agreement. - Vital Signs Vital signs: Temp Pulse Resp BP Pulse Ox 98.8 F 88 16 119/74 98 11/29/18 13:33 11/29/18 13:33 11/29/18 13:33 11/29/18 13:33 11/29/18 13:33 Discharge - Discharge Clinical Impression: Left ankle pain Qualifiers: Chronicity: acute Qualified Code(s): M25.572 - Pain in left ankle and joints of left foot Condition: Stable Disposition: HOME, SELF-CARE Instructions: Sprained Ankle ([facility]) Additional Instructions: Rest, Ice, Compression, Elevation Use crutches/splint as directed Tylenol/ibuprofen as needed Light stretches daily Strength exercises as able Moist heat and massage may help F/u with your PCP in 3-5 days for a recheck Consider consult(s) with Orthopedics/physical therapy for ongoing/worsening symptoms Return to the ED with any worsening symptoms and/or development of fever, headache, chest pain, palpitations, syncope, shortness of breath, trouble breathing, abdominal pain, n/v/d, muscle weakness/paralysis, numbness/tingling, swelling, redness, or other worsening symptoms that are concerning to you. Prescriptions: Ibuprofen [Motrin 800 mg Tablet] 800 mg PO Q8H PRN #15 tab PRN Reason: Referrals: OH LAUREN NP [Primary Care Provider] - Follow up as needed [facility] [Provider Group] - Follow up as needed
--- NOTE | 2018-11-29 14:01 | RADIOLOGY REPORT (SQ) ---
EXAM DESCRIPTION: ANKLE LEFT COMPLETE COMPLETED DATE/TIME: 11/29/2018 1:51 pm REASON FOR STUDY: bone tenderness COMPARISON: None. NUMBER OF VIEWS: Three views. TECHNIQUE: AP, lateral, and oblique radiographic images acquired of the left ankle. LIMITATIONS: None. FINDINGS: MINERALIZATION: Normal. BONES: No acute fracture or dislocation. No worrisome bone lesions. JOINTS: No effusions. SOFT TISSUES: No soft tissue swelling. No foreign body. OTHER: No other significant finding. IMPRESSION: NEGATIVE STUDY OF THE LEFT ANKLE. NO RADIOGRAPHIC EVIDENCE OF ACUTE INJURY. TECHNICAL DOCUMENTATION: JOB ID: [id number] [employer]- All Rights Reserved Reading location - IP/workstation name: [email or web address]
== END 2018-11-29 14:13 | disposition home or self-care (01) ==
LOC: ER 13:28
DX: M25.572 Pain in left ankle and joints of left foot (principal); M25.472 Effusion, left ankle; X50.0XXA Overexertion from strenuous movement or load, initial encounter
CPT/HCPCS: 73610; L1902; J3490; 99283

== ENCOUNTER 2019-02-02 15:12 | Emergency (ER) | payer MEDICAID ==
--- NOTE | 2019-02-02 15:45 | ER Document Report ---
ED Medical Screen (RME) - General Chief Complaint: Vag Bleeding, +preg <12wks Stated Complaint: VAGINAL BLEEDING Time Seen by Provider: 02/02/19 15:42 Primary Care Provider: OH LAUREN NP [Primary Care Provider] - Follow up as needed Mode of Arrival: Ambulatory Information source: Patient Notes: 28-year-old female presented to ED for complaint of vaginal bleeding and she just found out she was . She states she also has pain in the left side of her abdomen. She states that when she was going to the bathroom this morning something the size of a pair fell out. It looked like it was red but she is not sure what it was. Patient is alert oriented respirations regular and unlabored speaking in full sentences. She states it was 11:00 last night. States she got on control. I have greeted and performed a rapid initial assessment of this patient. A comprehensive ED assessment and evaluation of the patient, analysis of test results and completion of medical decision making process will be conducted by an additional ED providers. TRAVEL OUTSIDE OF THE [place] IN LAST 30 DAYS: No - Related Data Allergies/Adverse Reactions: No Known Allergies Allergy (Verified 11/29/18 13:40) Past Medical History Renal/ Medical History: Denies: Hx Peritoneal Dialysis Psychiatric Medical History: Reports: Hx Post Traumatic Stress Disorder Past Surgical History: Reports: Hx Breast Surgery - lumpectomy right breast - Immunizations Hx Diphtheria, Pertussis, Tetanus Vaccination: No Doctor's Discharge - Discharge Referrals: OH LAUREN NP [Primary Care Provider] - Follow up as needed
[2019-02-02 16:53] LABS: ALBUMIN 4.1 g/dL (3.5-5.0); ALKALINE PHOSPHATASE 45 U/L (38-126); ANION GAP 10 (5-19); ASPARTATE AMINO TRANSFERASE 17 U/L (14-36); BILIRUBIN,TOTAL 0.4 mg/dL (0.2-1.3); BLOOD UREA NITROGEN 7 mg/dL (7-20); CALCIUM 9.4 mg/dL (8.4-10.2); CARBON DIOXIDE 25 mmol/L (22-30); CHLORIDE 103 mmol/L (98-107); GLUCOSE 88 mg/dL (75-110); POTASSIUM 3.4 mmol/L (3.6-5.0); TOTAL PROTEIN 7.3 g/dL (6.3-8.2)
[2019-02-02 17:35] LABS: ABSOLUTE EOSINOPHILS # (AUTO) 0.1 10^3/uL (0.0-0.6); ABSOLUTE LYMPHOCYTES (AUTO) 1.5 10^3/uL (0.5-4.7); ABSOLUTE MONOCYTES (AUTO) 0.5 10^3/uL (0.1-1.4); ABSOLUTE NEUT (AUTO) 7.2 10^3/uL (1.7-8.2); BASOPHILS % (AUTO) 0.5 % (0-2); EOSINOPHILS % (AUTO) 1.4 % (0-6); HEMATOCRIT 32.3 % (36.0-47.0); HEMOGLOBIN 10.9 g/dL (12.0-15.5); LYMPHOCYTES % (AUTO) 16.3 % (13-45); MEAN CORPUSCULAR HEMOGLOBIN 29.3 pg (27.0-33.4); MEAN CORPUSCULAR HGB CONC 33.6 g/dL (32.0-36.0); MEAN CORPUSCULAR VOLUME 87 fl (80-97); MONOCYTES % (AUTO) 5.6 % (3-13); PLATELET COUNT 237 10^3/uL (150-450); RED BLOOD COUNT 3.71 10^6/uL (3.72-5.28); RED CELL DISTRIBUTION WIDTH 14.2 % (11.5-14.0); SEGMENTED NEUTROPHILS % (AUTO) 76.2 % (42-78); TOTAL CELLS COUNTED % (AUTO) 100 %; WHITE BLOOD COUNT 9.5 10^3/uL (4.0-10.5)
--- NOTE | 2019-02-02 18:27 | RADIOLOGY REPORT (SQ) ---
EXAM DESCRIPTION: U/S OB TRANSVAGINAL W/O DOP; U/S OB 14+ TRNABD 1GES W/O DOP COMPLETED DATE/TIME: 02/02/2019 6:07 pm; 02/02/2019 6:00 pm REASON FOR STUDY: vaginal bleeding ; VAGINAL BLEEDING COMPARISON: None. TECHNIQUE: Transvaginal and transabdominal static and realtime grayscale images acquired of the pelv is. Additional selected spectral and color Doppler images recorded. All images stored on PACs. bHCG: Not applicable. CLINICAL DATES: 15 weeks 0 days LIMITATIONS: None. FINDINGS: FETUS: Single Living intrauterine . ULTRASOUND EGA: 15 weeks 0 days ULTRASOUND HÉCTOR: 07/27/2019 EFW: Not applicable less than 20 weeks. CRL: 8.5 cm FHR: 155 beats per minute. SURVEY: A complete anatomical survey was not performed. AMNIOTIC FLUID: Adequate amount. PLACENTA: Not yet developed due to early gestation. SUBCHORIONIC BLEED: No SIZE OF BLEED: Not applicable. UTERUS: No masses. No anomalies. CERVICAL LENGTH: 2.9 cm. Closed. RIGHT ADNEXA: Ovary not seen. No adnexal free fluid. No adnexal masses. LEFT ADNEXA: Ovary not seen. No adnexal free fluid. No adnexal masses. FREE FLUID: None. OTHER: No other significant finding. IMPRESSION: LIVING INTRAUTERINE . EGA 15 weeks 0 days. Trimester of : Second trimester - 13 weeks 1 day to 27 weeks 6 days. TECHNICAL DOCUMENTATION: JOB ID: [id number] [employer]- All Rights Reserved rev-08/27 Reading location - IP/workstation name: [email or web address]
[2019-02-02 19:09] LABS: APPEARANCE,URINE SLIGHTLY-CLOUDY; BILIRUBIN,URINE NEGATIVE (NEGATIVE); COLOR,URINE YELLOW; GLUCOSE, URINE NEGATIVE (NEGATIVE); KETONES,URINE TRACE mg/dL (NEGATIVE); PROTEIN,URINE NEGATIVE (NEGATIVE); URINE SPECIFIC GRAVITY 1.017
--- NOTE | 2019-02-02 19:35 | ER Document Report ---
HPI - HPI Time Seen by Provider: 02/02/19 15:42 Pain Level: Denies Notes: Patient is an otherwise healthy 28-year-old female G5, P4 presenting to the emergency department with complaints of vaginal bleeding and low abdominal cramping. Patient reports symptoms started this morning. She reports this morning she passed a large clot. She currently reports mild low intermittent cramping to the left lower quadrant. She reports her last menstrual period was sometime in October. - GASTROINTESTINAL Gastrointestinal: REPORTS: Abdominal Pain - REPRODUCTIVE Reproductive: REPORTS: :, Abnormal bleeding / discharge Past Medical History - General Information source: Patient - Social History Smoking Status: Never Smoker Chew tobacco use (# tins/day): No Frequency of alcohol use: None Drug Abuse: None Family History: Reviewed & Not Pertinent Patient has suicidal ideation: No Patient has homicidal ideation: No Renal/ Medical History: Denies: Hx Peritoneal Dialysis Psychiatric Medical History: Reports: Hx Depression, Hx Post Traumatic Stress Disorder Past Surgical History: Reports: Hx Breast Surgery - lumpectomy right breast - Immunizations Hx Diphtheria, Pertussis, Tetanus Vaccination: No Vertical Provider Document - CONSTITUTIONAL Notes: PHYSICAL EXAMINATION: GENERAL: Well-appearing, well-nourished and in no acute distress. HEAD: Atraumatic, normocephalic. EYES: Pupils equal round and reactive to light, extraocular movements intact, conjunctiva are normal. ENT: Nares patent, oropharynx clear without exudates. Moist mucous membranes. NECK: Normal range of motion, supple without lymphadenopathy LUNGS: Breath sounds clear to auscultation bilaterally and equal. No wheezes rales or rhonchi. HEART: Regular rate and rhythm without murmurs ABDOMEN: Soft, nontender, nondistended abdomen. No guarding, no rebound. No masses appreciated. Female : deferred Musculoskeletal: Normal range of motion, no pitting or edema. No cyanosis. NEUROLOGICAL: Cranial nerves grossly intact. Normal speech, normal gait. Normal sensory, motor exams PSYCH: Normal mood, normal affect. SKIN: Warm, Dry, normal turgor, no rashes or lesions noted. - INFECTION CONTROL TRAVEL OUTSIDE OF THE [place] IN LAST 30 DAYS: No Course - Re-evaluation Re-evalutation: Laboratory 02/02/19 02/02/19 02/02/19 16:21 17:13 17:13 WBC 9.5 RBC 3.71 L Hgb 10.9 L Hct 32.3 L MCV 87 MCH 29.3 MCHC 33.6 RDW 14.2 H Plt Count 237 Lymph % (Auto) 16.3 [place] % (Auto) 5.6 Eos % (Auto) 1.4 Baso % (Auto) 0.5 Absolute Neuts (auto) 7.2 Absolute Lymphs (auto) 1.5 Absolute Monos (auto) 0.5 Absolute Eos (auto) 0.1 Absolute Basos (auto) 0.0 Seg Neutrophils % 76.2 Sodium 137.5 Potassium 3.4 L Chloride 103 Carbon Dioxide 25 Anion Gap 10 BUN 7 Creatinine 0.45 L Est GFR ( Amer) > 60 Est GFR (MDRD) Non-Af > 60 Glucose 88 Calcium 9.4 Total Bilirubin 0.4 Direct Bilirubin 0.0 Neonat Total Bilirubin Not Reportable Neonat Direct Bilirubin Not Reportable Neonat Indirect Bili Not Reportable AST 17 ALT 8 Alkaline Phosphatase 45 Total Protein 7.3 Albumin 4.1 Beta HCG, Quant 359055.00 H Total Beta HCG POSITIVE Urine Color Urine Appearance Urine pH Ur Specific [place] Urine Protein Urine Glucose (UA) Urine Ketones Urine Blood Urine Nitrite (Reflex) Urine Bilirubin Urine Urobilinogen Leukocyte Esterase Rfl Urine RBC (Auto) Urine WBC (Reflex) Squamous Epi Cells Auto Urine Mucus (Auto) Urine Ascorbic Acid Blood Type A POSITIVE Rhogam Indicated RHOGAM NOT INDICATED 02/02/19 18:50 WBC RBC Hgb Hct MCV MCH MCHC RDW Plt Count Lymph % (Auto) [place] % (Auto) Eos % (Auto) Baso % (Auto) Absolute Neuts (auto) Absolute Lymphs (auto) Absolute Monos (auto) Absolute Eos (auto) Absolute Basos (auto) Seg Neutrophils % Sodium Potassium Chloride Carbon Dioxide Anion Gap BUN Creatinine Est GFR ( Amer) Est GFR (MDRD) Non-Af Glucose Calcium Total Bilirubin Direct Bilirubin Neonat Total Bilirubin Neonat Direct Bilirubin Neonat Indirect Bili AST ALT Alkaline Phosphatase Total Protein Albumin Beta HCG, Quant Total Beta HCG Urine Color YELLOW Urine Appearance SLIGHTLY-CLOUDY Urine pH 7.0 Ur Specific [place] 1.017 Urine Protein NEGATIVE Urine Glucose (UA) NEGATIVE Urine Ketones TRACE H Urine Blood LARGE H Urine Nitrite (Reflex) NEGATIVE Urine Bilirubin NEGATIVE Urine Urobilinogen 2.0 H Leukocyte Esterase Rfl LARGE H Urine RBC (Auto) 7 Urine WBC (Reflex) 5 Squamous Epi Cells Auto 8 Urine Mucus (Auto) RARE Urine Ascorbic Acid NEGATIVE Blood Type Rhogam Indicated Obstetrics Ultrasound 02/02/19 15:45 IMPRESSION: LIVING INTRAUTERINE . EGA 15 weeks 0 days. Trimester of : Second trimester - 13 weeks 1 day to 27 weeks 6 days. Patient is an otherwise healthy 28-year-old female. Patient appears well, nontoxic and vital signs are within normal limits. Patient currently states bleeding has subsided. Labs as recorded above. Patient is Rh+, no indication for RhoGam. Ultrasound shows a living intrauterine approximate gestational age 15 weeks. No other abnormality found on ultrasound. Urine does show leukocyte esterase, patient denies any dysuria or urinary frequency. There are an equal number of squamous epithelial cells to urine white blood cells so we will hold off on treating this until a urine culture is back. Patient has an follow-up appointment tomorrow with the health department, she will see them, and a copy of all of her labs and ultrasound from today were given to her. Strict ED return precautions were discussed, patient verbalizes understanding a nd agreement this plan. The patient's emergency department workup and current diagnosis were explained to the patient and or family. Follow-up instructions were provided. Medications if prescribed were discussed. Instructions for when to return to the emergency department including specific worrisome symptoms were discussed with the patient and/or family. - Vital Signs Vital signs: Temp Pulse Resp BP Pulse Ox 97.6 F 88 16 120/72 100 02/02/19 15:44 02/02/19 15:44 02/02/19 15:44 02/02/19 15:44 02/02/19 15:44 - Laboratory Result Diagrams: 02/02/19 17:13 02/02/19 16:21 Laboratory results interpreted by me: 02/02/19 02/02/19 02/02/19 16:21 17:13 18:50 RBC 3.71 L Hgb 10.9 L Hct 32.3 L RDW 14.2 H Potassium 3.4 L Creatinine 0.45 L Beta HCG, Quant 542541.00 H Urine Ketones TRACE H Urine Blood LARGE H Urine Urobilinogen 2.0 H Leukocyte Esterase Rfl LARGE H Discharge - Discharge Clinical Impression: Vaginal bleeding during Condition: Stable Disposition: HOME, SELF-CARE Additional Instructions: You were seen for an episode of vaginal bleeding during . At this point in time your blood work, urine and ultrasound look okay. According to your ultrasound you are 15 weeks . It is really important for you to follow-up with an ENTRY DRIVER OPERATOR regarding today's findings. Keep the appointment you have scheduled for tomorrow. I sent you with a copy of your lab work and ultrasound for their review. Return to the emergency department for any new or worsening symptoms to include bleeding through more than 1 pad per hour for 4 hours consecutively or worsening abdominal pain. Forms: Return to Work Referrals: OH LAUREN NP [Primary Care Provider] - Follow up as needed
[2019-02-02 19:49] VITALS: BP 118/49
== END 2019-02-02 19:54 | disposition home or self-care (01) ==
LOC: ER 15:12
DX: O46.90 Antepartum hemorrhage, unspecified, unspecified trimester (principal); O26.899 Other specified pregnancy related conditions, unspecified trimester; R10.32 Left lower quadrant pain; Z3A.00 Weeks of gestation of pregnancy not specified
CPT/HCPCS: 36415; 76805; 76817; 80053; 81001; 84702; 85025; 86900; 86901; 87086

== ENCOUNTER 2019-03-02 09:34 | Emergency (ER) | payer MEDICAID ==
--- NOTE | 2019-03-02 10:37 | ER Document Report ---
ED Medical Screen (RME) - General Chief Complaint: Vaginal Bleeding Stated Complaint: RASH/VAGINAL AREA, VAGINAL BLEEDING Time Seen by Provider: 03/02/19 10:33 Primary Care Provider: OH LAUREN NP [Primary Care Provider] - Follow up as needed TRAVEL OUTSIDE OF THE [place] IN LAST 30 DAYS: No - HPI Notes: 03/02/19 10:36 Patient is a G6, P4 28-year-old female approximately 17 weeks who presents complaining of vaginal bleeding that has been persistent for 4-1/2 weeks with development of rash in her vaginal area, burning with urination, and intermittent cramping. No fever, chest pain, vomiting, diarrhea. I have treated and performed a rapid initial assessment of this patient. A comprehensive ED assessment and evaluation of the patient, analysis of test results and completion of medical decision making process will be conducted by additional ED providers. PHYSICAL EXAMINATION: GENERAL: Well-appearing, well-nourished and in no acute distress. A&Ox4. Answers questions appropriately. - Related Data Allergies/Adverse Reactions: No Known Allergies Allergy (Verified 03/02/19 10:27) Past Medical History - Social History Chew tobacco use (# tins/day): No Frequency of alcohol use: None Drug Abuse: None Renal/ Medical History: Denies: Hx Peritoneal Dialysis Psychiatric Medical History: Reports: Hx Depression, Hx Post Traumatic Stress Disorder Past Surgical History: Reports: Hx Breast Surgery - lumpectomy right breast - Immunizations Hx Diphtheria, Pertussis, Tetanus Vaccination: No Physical Exam - Vital signs Vitals: Temp Pulse Resp BP Pulse Ox 98.2 F 80 20 112/73 99 03/02/19 09:39 03/02/19 09:39 03/02/19 09:39 03/02/19 09:39 03/02/19 09:39 Course - Vital Signs Vital signs: Temp Pulse Resp BP Pulse Ox 98.2 F 80 20 112/73 99 03/02/19 09:39 03/02/19 09:39 03/02/19 09:39 03/02/19 09:39 03/02/19 09:39 Doctor's Discharge - Discharge Referrals: OH LAUREN NP [Primary Care Provider] - Follow up as needed
[2019-03-02 11:20] LABS: ABSOLUTE EOSINOPHILS # (AUTO) 0.2 10^3/uL (0.0-0.6); ABSOLUTE LYMPHOCYTES (AUTO) 1.4 10^3/uL (0.5-4.7); ABSOLUTE MONOCYTES (AUTO) 0.5 10^3/uL (0.1-1.4); ABSOLUTE NEUT (AUTO) 7.5 10^3/uL (1.7-8.2); BASOPHILS % (AUTO) 0.3 % (0-2); EOSINOPHILS % (AUTO) 1.7 % (0-6); HEMOGLOBIN 11.2 g/dL (12.0-15.5); LYMPHOCYTES % (AUTO) 14.8 % (13-45); MEAN CORPUSCULAR HEMOGLOBIN 30.2 pg (27.0-33.4); MEAN CORPUSCULAR VOLUME 89 fl (80-97); MONOCYTES % (AUTO) 4.9 % (3-13); PLATELET COUNT 235 10^3/uL (150-450); RED BLOOD COUNT 3.71 10^6/uL (3.72-5.28); RED CELL DISTRIBUTION WIDTH 14.9 % (11.5-14.0); SEGMENTED NEUTROPHILS % (AUTO) 78.3 % (42-78); TOTAL CELLS COUNTED % (AUTO) 100 %; WHITE BLOOD COUNT 9.5 10^3/uL (4.0-10.5)
[2019-03-02 11:27] LABS: APPEARANCE,URINE SLIGHTLY-CLOUDY; BILIRUBIN,URINE NEGATIVE (NEGATIVE); COLOR,URINE YELLOW; GLUCOSE, URINE NEGATIVE (NEGATIVE); KETONES,URINE NEGATIVE (NEGATIVE); PROTEIN,URINE NEGATIVE (NEGATIVE); URINE SPECIFIC GRAVITY 1.012; UROBILINOGEN,URINE NEGATIVE mg/dL (<2.0)
[2019-03-02 11:41] LABS: ALBUMIN 3.9 g/dL (3.5-5.0); ALKALINE PHOSPHATASE 46 U/L (38-126); ANION GAP 10 (5-19); ASPARTATE AMINO TRANSFERASE 18 U/L (14-36); BILIRUBIN,TOTAL 0.3 mg/dL (0.2-1.3); BLOOD UREA NITROGEN 5 mg/dL (7-20); CALCIUM 9.4 mg/dL (8.4-10.2); CARBON DIOXIDE 24 mmol/L (22-30); CHLORIDE 106 mmol/L (98-107); GLUCOSE 75 mg/dL (75-110); POTASSIUM 3.7 mmol/L (3.6-5.0)
--- NOTE | 2019-03-02 12:59 | RADIOLOGY REPORT (SQ) ---
EXAM DESCRIPTION: U/S OB LIMITED COMPLETED DATE/TIME: 03/02/2019 12:28 pm REASON FOR STUDY: approx 17wks, bleeding COMPARISON: OB ultrasound 02/02/2019 TECHNIQUE: Limited transabdominal grayscale ultrasound for evaluation of specific requested obstetri felipe parameters. LIMITATIONS: None. FINDINGS: CERVICAL LENGTH: 3 cm Closed. WILSON: Largest pocket 3.8 cm. FHR: 158 beats per minute. PRESENTATION: Breech. PLACENTA: Placenta is anterior grade 1. There may be a succenturiate placenta with an accessory lobe, which crosses the internal cervical os. Along the anterior lower uterine segment placental margin, a hypoechoic subacute well-circumscribed m arginal placenta hemorrhage is present. There is a hypoechoic hematoma with thin septations along th e anterior inferior edge of the placenta adjacent to the internal cervical os measuring 8 x 5 x 6 cm in size. No internal color flow within this fluid collection. No ultrasound evidence of active blee ding into the fluid collection. ANATOMY: Not assessed OTHER: Measurements estimate the gestational age at 19 weeks 0 days, estimated due date 07/27/2019 IMPRESSION: Subacute loculated hemorrhage along the anterior inferior placental margin. Subacute hy poechoic septated hematoma measures 8 x 5 x 6 cm in size. Possible succenturiate placenta with accessory lobe which crosses the internal cervical os. Living fetus, 19 weeks 0 days, heart rate 158 beats per minute. Trimester of : Second trimester - 13 weeks 1 day to 27 weeks 6 days. COMMENT: Report discussed with Dr. Brown in the emergency room TECHNICAL DOCUMENTATION: JOB ID: [id number] [employer]- All Rights Reserved Reading location - IP/workstation name: [email or web address]
--- NOTE | 2019-03-02 13:33 | ER Document Report ---
ED General - General Chief Complaint: Vaginal Bleeding Stated Complaint: RASH/VAGINAL AREA, VAGINAL BLEEDING Time Seen by Provider: 03/02/19 10:33 Primary Care Provider: OH LAUREN NP [NURSE PRACTITIONER] - Follow up in 3-5 days FRANTZ GALAVIZ MD [ACTIVE STAFF] - 03/08/19 Notes: 28-year-old G6, P4 approximately 17-week female presents for vaginal rash and irritation that started yesterday. Patient states she thinks this is because of having to wear a maxi pad. Patient has been having vaginal bleed sin ce 01/24. Patient states that originally the blood was bright red but now it is a "burgundy" color. Patient states she is currently bleeding through 5-6 maxipads a day and this has been the same since she first started bleeding. Review of records reveal that patient's blood type is A+. TRAVEL OUTSIDE OF THE [place] IN LAST 30 DAYS: No - Related Data Allergies/Adverse Reactions: No Known Allergies Allergy (Verified 03/02/19 10:27) Past Medical History - General Information source: Patient - Social History Smoking Status: Never Smoker Chew tobacco use (# tins/day): No Frequency of alcohol use: None Drug Abuse: None Family History: Reviewed & Not Pertinent Patient has suicidal ideation: No Patient has homicidal ideation: No Renal/ Medical History: Denies: Hx Peritoneal Dialysis Psychiatric Medical History: Reports: Hx Depression, Hx Post Traumatic Stress Disorder Past Surgical History: Reports: Hx Breast Surgery - lumpectomy right breast, Hx Section - Immunizations Hx Diphtheria, Pertussis, Tetanus Vaccination: No Review of Systems - Review of Systems Notes: Constitutional: Negative for fever. HENT: Negative for sore throat. Eyes: Negative for visual changes. Cardiovascular: Negative for chest pain. Respiratory: Negative for shortness of breath. Gastrointestinal: Negative for abdominal pain, vomiting or diarrhea. Genitourinary: Positive for vaginal bleeding, vaginal rash/irritation and dysuria. Musculoskeletal: Negative for back pain. Skin: Negative for rash. Neurological: Negative for headaches, weakness or numbness. 10 point ROS negative except as marked above and in HPI. Physical Exam - Vital signs Vitals: Temp Pulse Resp BP Pulse Ox 98.2 F 80 20 112/73 99 03/02/19 09:39 03/02/19 09:39 03/02/19 09:39 03/02/19 09:39 03/02/19 09:39 - Notes Notes: GENERAL: Well-appearing, well-nourished and in no acute distress. HEAD: Atraumatic, normocephalic. EYES: Extraocular movements intact, sclera anicteric, conjunctiva are normal. NECK: Normal range of motion, supple without lymphadenopathy or JVD. LUNGS: Breath sounds clear to auscultation bilaterally and equal. No wheezes rales or rhonchi. HEART: Regular rate and rhythm without murmurs, rubs or gallops. ABDOMEN: Soft, nontender. No guarding, no rebound. No masses appreciated. : Irritation noted to labia and pelvic area. Patient is very sensitive and would not allow further examination. EXTREMITIES: Normal range of motion, no pitting or edema. No clubbing or cyanosis. NEUROLOGICAL: Cranial nerves II through XII grossly intact. Normal speech, normal gait. PSYCH: Normal mood, normal affect. SKIN: Warm, Dry, normal turgor, no rashes or lesions noted. Course - Re-evaluation Re-evalutation: 03/02/19 13:37 Discussed pt's H&P and US results with obgyn fire protection fabricator, Dr. Frantz Galaviz, who states nothing to be done for subacute hemorrhage/hematoma on US. Also discussed rash and recommends hydrocortisone topical for same. Pt has first appointment with obgynJael, on 03/08. Dr. Galaviz states to have pt keep this appointment. 03/02/19 13:52 printed out results of ultrasound. And explained ultrasound results to patient. Also discussed UA results and lab work to patient. Pt encouraged to keep appointment on 03/08. Pt voices understanding and agrees with plan of care. All questions/concerns addressed prior to discharge. 03/02/19 14:02 Discussed pt with attending, Dr. Shetty, who agrees with plan of care. - Vital Signs Vital signs: Temp Pulse Resp BP Pulse Ox 98.1 F 85 18 109/68 99 03/02/19 14:24 03/02/19 14:24 03/02/19 14:24 03/02/19 14:24 03/02/19 14:24 - Laboratory Result Diagrams: 03/02/19 10:53 03/02/19 10:53 Laboratory results interpreted by me: 03/02/19 03/02/19 03/02/19 10:52 10:53 10:53 RBC 3.71 L Hgb 11.2 L Hct 33.0 L RDW 14.9 H Seg Neutrophils % 78.3 H BUN 5 L Creatinine 0.42 L Urine Blood LARGE H Leukocyte Esterase Rfl LARGE H Discharge - Discharge Clinical Impression: Vaginal bleeding during , Vaginal irritation, Acute UTI (urinary tract infection) Condition: Stable Disposition: HOME, SELF-CARE Additional Instructions: Please use hydrocortisone cream as prescribed. Please take antibiotics as prescribed. Please keep your appointment on 03/08 as scheduled. Please return to ER for any worsening symptoms including worsening vaginal bleeding, fever, pelvic pain, abdominal pain or any other concerning symptoms. Prescriptions: Hydrocortisone [Hydrocortisone 1% Ointment] 1 applic TP DAILY #7 tube Nitrofurantoin/Nitrofuran Mac [Macrobid 100 mg Capsule] 1 tab PO BID #20 capsule Referrals: OH LAUREN, DREDGE OPERATOR SUPERVISOR [NURSE PRACTITIONER] - Follow up in 3-5 days FRANTZ GALAVIZ MD [ACTIVE STAFF] - 03/08/19
[2019-03-02 14:28] VITALS: BP 109/68
== END 2019-03-02 14:28 | disposition home or self-care (01) ==
LOC: ER 09:34
DX: O20.8 Other hemorrhage in early pregnancy (principal); O23.42 Unspecified infection of urinary tract in pregnancy, second trimester; O26.892 Other specified pregnancy related conditions, second trimester; R21 Rash and other nonspecific skin eruption; Z3A.19 19 weeks gestation of pregnancy
CPT/HCPCS: 36415; 76815; 80053; 81001; 85025; 87086; 99284

== ENCOUNTER → 2019-05-04 | Outpatient (CLI) | payer MEDICAID ==
[2019-05-04 15:05] LABS: A TYPE INFLUENZA AG NEGATIVE (NEGATIVE); B INFLUENZA AG POSITIVE (NEGATIVE)
== END ==
LOC: OD 14:24
PROVIDERS: ATTEND Nurse Practitioner Acute Care
DX: R68.89 Other general symptoms and signs (principal)
CPT/HCPCS: 87804

== ENCOUNTER 2019-07-20 06:01 | Inpatient (IN) | payer MEDICAID ==
[2019-07-12 10:31] LABS: ABSOLUTE EOSINOPHILS # (AUTO) 0.1 10^3/uL (0.0-0.6); ABSOLUTE MONOCYTES (AUTO) 0.5 10^3/uL (0.1-1.4); ABSOLUTE NEUT (AUTO) 6.6 10^3/uL (1.7-8.2); BASOPHILS % (AUTO) 0.5 % (0-2); EOSINOPHILS % (AUTO) 0.7 % (0-6); HEMATOCRIT 36.3 % (36.0-47.0); HEMOGLOBIN 12.2 g/dL (12.0-15.5); LYMPHOCYTES % (AUTO) 21.4 % (13-45); MEAN CORPUSCULAR HEMOGLOBIN 29.9 pg (27.0-33.4); MEAN CORPUSCULAR HGB CONC 33.6 g/dL (32.0-36.0); MEAN CORPUSCULAR VOLUME 89 fl (80-97); MONOCYTES % (AUTO) 5.5 % (3-13); PLATELET COUNT 168 10^3/uL (150-450); RED BLOOD COUNT 4.09 10^6/uL (3.72-5.28); RED CELL DISTRIBUTION WIDTH 15.4 % (11.5-14.0); SEGMENTED NEUTROPHILS % (AUTO) 71.9 % (42-78); TOTAL CELLS COUNTED % (AUTO) 100 %; WHITE BLOOD COUNT 9.2 10^3/uL (4.0-10.5)
[2019-07-12 10:39] LABS: APPEARANCE,URINE SLIGHTLY-CLOUDY; BILIRUBIN,URINE NEGATIVE (NEGATIVE); COLOR,URINE YELLOW; GLUCOSE, URINE NEGATIVE (NEGATIVE); KETONES,URINE NEGATIVE (NEGATIVE); LEUKOCYTE ESTERASE,URINE MODERATE (NEGATIVE); NITRITE,URINE NEGATIVE (NEGATIVE); PROTEIN,URINE NEGATIVE (NEGATIVE); URINE SPECIFIC GRAVITY 1.006; UROBILINOGEN,URINE NEGATIVE mg/dL (<2.0)
[2019-07-12 11:05] LABS: URINE AMPHETAMINES SCREEN NEGATIVE; URINE BARBITURATES SCREEN NEGATIVE; URINE BENZODIAZEPINES SCREEN NEGATIVE; URINE COCAINE SCREEN NEGATIVE; URINE MARIJUANA (THC) SCREEN NEGATIVE; URINE METHADONE SCREEN NEGATIVE; URINE PHENCYCLIDINE SCREEN NEGATIVE
[2019-07-19 08:29] LABS: ABSOLUTE EOSINOPHILS # (AUTO) 0.1 10^3/uL (0.0-0.6); ABSOLUTE LYMPHOCYTES (AUTO) 1.8 10^3/uL (0.5-4.7); ABSOLUTE MONOCYTES (AUTO) 0.4 10^3/uL (0.1-1.4); ABSOLUTE NEUT (AUTO) 5.9 10^3/uL (1.7-8.2); BASOPHILS % (AUTO) 0.3 % (0-2); EOSINOPHILS % (AUTO) 1.1 % (0-6); HEMATOCRIT 34.8 % (36.0-47.0); LYMPHOCYTES % (AUTO) 21.7 % (13-45); MEAN CORPUSCULAR HEMOGLOBIN 30.6 pg (27.0-33.4); MEAN CORPUSCULAR HGB CONC 34.5 g/dL (32.0-36.0); MEAN CORPUSCULAR VOLUME 89 fl (80-97); MONOCYTES % (AUTO) 4.8 % (3-13); PLATELET COUNT 153 10^3/uL (150-450); RED BLOOD COUNT 3.92 10^6/uL (3.72-5.28); RED CELL DISTRIBUTION WIDTH 15.3 % (11.5-14.0); SEGMENTED NEUTROPHILS % (AUTO) 72.1 % (42-78); TOTAL CELLS COUNTED % (AUTO) 100 %; WHITE BLOOD COUNT 8.1 10^3/uL (4.0-10.5)
[2019-07-19 08:32] LABS: APPEARANCE,URINE SLIGHTLY-CLOUDY; BILIRUBIN,URINE NEGATIVE (NEGATIVE); COLOR,URINE STRAW; GLUCOSE, URINE NEGATIVE (NEGATIVE); KETONES,URINE NEGATIVE (NEGATIVE); LEUKOCYTE ESTERASE,URINE MODERATE (NEGATIVE); NITRITE,URINE NEGATIVE (NEGATIVE); PROTEIN,URINE NEGATIVE (NEGATIVE); URINE SPECIFIC GRAVITY 1.004; UROBILINOGEN,URINE NEGATIVE mg/dL (<2.0)
[2019-07-19 08:45] LABS: URINE AMPHETAMINES SCREEN NEGATIVE; URINE BARBITURATES SCREEN NEGATIVE; URINE BENZODIAZEPINES SCREEN NEGATIVE; URINE COCAINE SCREEN NEGATIVE; URINE MARIJUANA (THC) SCREEN NEGATIVE; URINE METHADONE SCREEN NEGATIVE; URINE PHENCYCLIDINE SCREEN NEGATIVE
[~2019-07-20 06:01] MED LIST: CEFAZOLIN SODIUM 2 GM in DEXTROSE 5%-WATER 100 ML IV PRN; RINGERS SOLUTION,LACTATED 1,000 ML IV ONE; RINGERS SOLUTION,LACTATED 1,000 ML IV PRN
[2019-07-20] MEDS ORDERED: FENTANYL CITRATE INJ/PF 100 MCG/2 ML AMPUL ONE (07:28)
[2019-07-20] MEDS ORDERED: ONDANSETRON HCL INJ/PF 4 MG/2 ML SDV ONE (07:28)
[2019-07-20] MEDS ORDERED: ACETAMINOPHEN 1,000 MG/100 ML RTUPB IV ONE (07:28)
[2019-07-20] MEDS ORDERED: OXYTOCIN 10 UNIT/ML VIAL ONE (07:28)
[2019-07-20] MEDS ORDERED: CEFAZOLIN 1 GM/D5W RTU 0 GM/0 ML RTUPB IV ONE (07:39)
[2019-07-20] MEDS ORDERED: MEPERIDINE HCL/PF INJ 25 MG/1 ML DISP.SYRIN IV PRN (09:40)
[2019-07-20] MEDS ORDERED: PROMETHAZINE HCL INJ 25 MG/1 ML VIAL IV PRN ×2 (09:40→10:03)
[2019-07-20] MEDS ORDERED: FENTANYL CITRATE INJ/PF 100 MCG/2 ML AMPUL IV PRN ×3 (09:40)
[2019-07-20] MEDS ORDERED: MEASLES,MUMPS&RUBELLA VACC/PF 0.5 ML VIAL SUBCUT PRN (10:03)
[2019-07-20] MEDS ORDERED: ACETAMINOPHEN 325 MG TABLET PO PRN (10:03)
[2019-07-20] MEDS ORDERED: DIPH/PERTUSS(ACELL)/TETANUS VAC/PF 0.5 ML SYR (>=10YO) IM PRN (10:03)
[2019-07-20] MEDS ORDERED: SIMETHICONE 80 MG TAB.CHEW PO PRN (10:03)
[2019-07-20] MEDS ORDERED: OXYCODONE-ACETAMINOPHEN 5-325 MG TABLET PO PRN (10:03)
[2019-07-20] MEDS ORDERED: ACETAMINOPHEN 1,000 MG/100 ML RTUPB IV PRN (10:03)
[2019-07-20] MEDS ORDERED: OXYTOCIN/NORMAL SALINE 20 UNIT/1,000 ML RTUINJ IV PRN (10:03)
--- NOTE | 2019-07-20 10:09 | PDOC DELIVERY SUMMARY ---
Delivery Summary - Maternal Hx : V Hx # Term Pregnancies: 2 Hx # Pregnancies: 2 Hx Total # of Abortions (Sponateous & Elective): 2 HÉCTOR: 07/27/19 Gestational Age: 39 Ruptured Membranes: AROM Fluids: Clear - Delivery Labor: Not In Labor Presentation: Vertex Heart Rate Monitoring: Externally Uterine Contraction Monitoring: External Support Person Present: Yes Location: OR : Scheduled Nuchal Cord: No - Medications Type of Anesthesia:: Spinal
--- NOTE | 2019-07-20 10:11 | Operative Report ---
Operative Report DATE OF SURGERY: 07/20/19 PREOPERATIVE DIAGNOSIS: IUP at term via section for sterilization POSTOPERATIVE DIAGNOSIS: Same OPERATION: Repeat low transverse section delivery of viable male bilateral tubal occlusion using Filshie clips SURGEON: FRANTZ SCHERER ANESTHESIA: Spinal TISSUE REMOVED OR ALTERED: Placenta ESTIMATED BLOOD LOSS: About 800 cc PROCEDURE: The patient was taken to the operating room where spinal anesthesia was obtained and found to be adequate. She was then prepped and draped in the normal sterile fashion and placed in the dorsal supine position with a leftward tilt. A Pfannenstiel skin incision was then made and carried through to the underlying layers of the fascia with the scalpel. The fascia was incised in the midline and the incision extended laterally with the Russo scissors. The superior aspect of the fascial incision was then grasped with Soren clamps elevated and the underlying rectus muscles dissected off bluntly. Attention was then turned to the inferior aspect of the fascial incision which in a similar fashion was grasped, tented up with Vidal clamps, and the rectus muscles dissected off bluntly. The rectus muscles were then in the midline and the peritoneum at the amount identified and entered bluntly. The peritoneal incision was then extended superiorly and inferiorly with good visualization of the bladder. [The bladder blade was inserted and the vesicouterine peritoneum identified grasped with [place] pickups and entered sharply with the Metzenbaum scissors. His incision was then extended laterally with the Metzenbaum scissors and a bladder flap created digitally. The bladder blade was then reinserted and the lower uterine segment incised in a transverse fashion with the scalpel. The uterine incision was then extended bluntly. The bladder blade was removed and the 's head was delivered from cephalic presentation atraumatically. The nose and mouth were suctioned and the cord doubly clamped and cut. And the infant was handed off to waiting pediatricians. The placenta was then delivered manully and the uterus exteriorized and cleared of all clots and debris. The uterine incision was then repaired with 1-0 Vicryl in a running locked fashion. A second layer of the same suture was used to obtain hemostasis via imbrication of the initial layer. The right fallopian tube was banded in the proximal portion and repeated on the left good occlusion was noted on both sides. The uterus was returned to the patient's abdomen. The gutters were cleared of all clots and debris. All operative sites were noted to be hemostatic. The fascia was reapproximated with 0 Vicryl in a running fashion from each lateral edge to the midline. The patient tolerated the procedure well. Sponge lap needle and instrument counts are correct -2. 2 g of Ancef were given prior to skin incision. The patient was taken to the recovery area awake and in stable condition.
[2019-07-20] MEDS ORDERED: DIPHENHYDRAMINE HCL 50 MG/ML VIAL ONE (10:22)
[2019-07-20] MEDS ORDERED: OXYTOCIN/NORMAL SALINE 20 UNIT/1,000 ML RTUINJ ONE (10:22)
[2019-07-20] MEDS: DIPHENHYDRAMINE HCL 50 MG/ML VIAL IV PRN ×2 (10:25→11:23)
[2019-07-20] MEDS: MORPHINE SULFATE 10 MG/ML INJ IM PRN ×3 (13:11→21:06)
[2019-07-20] MEDS: KETOROLAC TROMETHAMINE INJ/PF 30 MG/1 ML SDV IV SCH ×2 (13:24→22:20)
[2019-07-20] MEDS: OXYCODONE-ACETAMINOPHEN 5-325 MG TABLET PO PRN ×2 (14:07→19:46)
[2019-07-20] MEDS: DOCUSATE SODIUM 100 MG CAPSULE PO SCH (17:15)
[2019-07-21] MEDS: OXYCODONE-ACETAMINOPHEN 5-325 MG TABLET PO PRN ×2 (04:03→21:31)
[2019-07-21] MEDS: KETOROLAC TROMETHAMINE INJ/PF 30 MG/1 ML SDV IV SCH (05:05)
[2019-07-21 06:09] LABS: HEMATOCRIT 35.5 % (36.0-47.0); MEAN CORPUSCULAR HEMOGLOBIN 30.4 pg (27.0-33.4); MEAN CORPUSCULAR HGB CONC 33.8 g/dL (32.0-36.0); MEAN CORPUSCULAR VOLUME 90 fl (80-97); PLATELET COUNT 123 10^3/uL (150-450); RED BLOOD COUNT 3.95 10^6/uL (3.72-5.28); RED CELL DISTRIBUTION WIDTH 15.3 % (11.5-14.0); WHITE BLOOD COUNT 10.7 10^3/uL (4.0-10.5)
[2019-07-21] MEDS: PRENATAL VITAMIN W DHA CAPSULE PO SCH (09:29)
[2019-07-21] MEDS: DOCUSATE SODIUM 100 MG CAPSULE PO SCH ×2 (09:29→17:47)
[2019-07-21] MEDS ORDERED: ONDANSETRON 4 MG TAB.RAPDIS PO PRN (10:29)
[2019-07-21] MEDS ORDERED: PROMETHAZINE HCL INJ 25 MG/1 ML VIAL IV PRN (10:34)
--- NOTE | 2019-07-21 10:55 | PDOC PROGRESS REPORT ---
Subjective-OB Progress Note for:: 07/21/19 - POD #1, doing well, voiding, c/o incisional discomfort, A+ Rubella Immune, bottlefeeding Physical Exam (OB) Vital Signs: Temp Pulse Resp BP Pulse Ox 98.3 F 60 16 113/65 100 07/21/19 07:17 07/21/19 07:17 07/21/19 07:17 07/21/19 07:17 07/21/19 07:17 Intake & Output 07/20/19 07/21/19 07/22/19 06:59 06:59 06:59 Intake Total 700 Output Total 2700 Balance -2000 Weight 85.7 kg - General General Appearance: Appears well, Alert - PIH/Pre-Eclampsia DTR's: 1 + Clonus: Negative Headache: Absent Epigastric Pain: No Visual Changes: No - Dressing Removed: Yes Incision: Well Approximated Closure Type: Surgical Glue - Bilateral Tubal Ligation Site: Dressing - Lochia Lochia Amount: Scant < 10 ml Lochia Color: Rubra/Red - Abdomen Description: Soft Hernia Present: No Fundal Description: Firm, Midline Fundal Height: u/u - u/2 - Respiratory Respiratory Status: No respiratory distress - Abdominal Distension: No distension Abdominal Notes: +bowel sounds - Genitourinary Genitourinary Note: voiding - Extremities Upper extremity: Normal inspection Lower extremities: Normal inspection - Neurological Cognition: Normal Orientation: AAOx4 Objective-Diagnostic Laboratory: 07/21/19 05:45 07/21/19 05:45 WBC 10.7 H RBC 3.95 Hgb 12.0 Hct 35.5 L MCV 90 MCH 30.4 MCHC 33.8 RDW 15.3 H Plt Count 123 L Assessment and Plan(PN) Plan:: Routine PP/ Post Op orders, ambulation encouraged - Time Spent with Patient Time with patient: Less than 15 minutes Medications reviewed and adjusted accordingly: Yes - Disposition Anticipated Discharge: Home Within: within 48 hours
[2019-07-21] MEDS: IBUPROFEN 800 MG TABLET PO SCH ×2 (12:00→17:47)
[2019-07-22] MEDS: IBUPROFEN 800 MG TABLET PO SCH ×3 (00:06→11:38)
--- NOTE | 2019-07-22 10:32 | PDOC DISCHARGE SUMMARY ---
Impression - Admit/DC Date/PCP Admission Date/Primary Care Provider: 07/20/19 06:01 FRANTZ SCHERER MD Discharge Date: 07/22/19 - POD #2, doing well, desires to go home today, A+, Rubella Immune, bottlefeeding - Additional Information Resuscitation Status: Full Code Discharge Diet: As Tolerated, Regular Discharge Activity: Activity As Tolerated, No Driving, No Lifting Over 10 Pounds, Pelvic Rest Referrals: FRANTZ SCHERER MD [Primary Care Provider] - Prescriptions: Ibuprofen [Motrin 800 mg Tablet] 800 mg PO Q6 #60 tablet Oxycodone HCl/Acetaminophen [Percocet 5-325 mg Tablet] 1 tab PO Q4HP PRN #30 tablet PRN Reason: Pain Scale Of 4 Home Medications: Pnv95/Iron Fum/Folic Acid [ Caplet] 1 tab PO DAILY 11/13/15 Ibuprofen [Motrin 800 mg Tablet] 800 mg PO Q6 #60 tablet 07/22/19 Oxycodone HCl/Acetaminophen [Percocet 5-325 mg Tablet] 1 tab PO Q4HP PRN #30 tablet 07/22/19 HPI Reason(s) for Admission: Ceasarean Section-Repeat Intrapartum Procedure(s): Tubal Ligation Results Laboratory Results: WBC 10.7 10^3/uL (4.0-10.5) H 07/21/19 05:45 RBC 3.95 10^6/uL (3.72-5.28) 07/21/19 05:45 Hgb 12.0 g/dL (12.0-15.5) 07/21/19 05:45 Hct 35.5 % (36.0-47.0) L 07/21/19 05:45 MCV 90 fl (80-97) 07/21/19 05:45 MCH 30.4 pg (27.0-33.4) 07/21/19 05:45 MCHC 33.8 g/dL (32.0-36.0) 07/21/19 05:45 RDW 15.3 % (11.5-14.0) H 07/21/19 05:45 Plt Count 123 10^3/uL (150-450) L 07/21/19 05:45 Lymph % (Auto) 21.7 % (13-45) 07/19/19 07:25 Sawyer % (Auto) 4.8 % (3-13) 07/19/19 07:25 Eos % (Auto) 1.1 % (0-6) 07/19/19 07:25 Baso % (Auto) 0.3 % (0-2) 07/19/19 07:25 Absolute Neuts (auto) 5.9 10^3/uL (1.7-8.2) 07/19/19 07:25 Absolute Lymphs (auto) 1.8 10^3/uL (0.5-4.7) 07/19/19 07:25 Absolute Monos (auto) 0.4 10^3/uL (0.1-1.4) 07/19/19 07:25 Absolute Eos (auto) 0.1 10^3/uL (0.0-0.6) 07/19/19 07:25 Absolute Basos (auto) 0.0 10^3/uL (0.0-0.2) 07/19/19 07:25 Seg Neutrophils % 72.1 % (42-78) 07/19/19 07:25 Urine Color STRAW 07/19/19 07:20 Urine Appearance SLIGHTLY-CLOUDY 07/19/19 07:20 Urine pH 7.0 (5.0-9.0) 07/19/19 07:20 Ur Specific Barney 1.004 07/19/19 07:20 Urine Protein NEGATIVE mg/dL (NEGATIVE) 07/19/19 07:20 Urine Glucose (UA) NEGATIVE mg/dL (NEGATIVE) 07/19/19 07:20 Urine Ketones NEGATIVE mg/dL (NEGATIVE) 07/19/19 07:20 Urine Blood NEGATIVE (NEGATIVE) 07/19/19 07:20 Urine Nitrite NEGATIVE (NEGATIVE) 07/19/19 07:20 Urine Bilirubin NEGATIVE (NEGATIVE) 07/19/19 07:20 Urine Urobilinogen NEGATIVE mg/dL (<2.0) 07/19/19 07:20 Ur Leukocyte Esterase MODERATE (NEGATIVE) H 07/19/19 07:20 Urine WBC (Auto) 2 /HPF 07/19/19 07:20 Urine RBC (Auto) 2 /HPF 07/19/19 07:20 Urine Bacteria (Auto) TRACE /HPF 07/19/19 07:20 Squamous Epi Cells Auto 8 /HPF 07/19/19 07:20 Urine Mucus (Auto) RARE /LPF 07/19/19 07:20 Urine Ascorbic Acid NEGATIVE (NEGATIVE) 07/19/19 07:20 Urine Opiates Screen NEGATIVE 07/19/19 07:20 Urine Methadone Screen NEGATIVE 07/19/19 07:20 Ur Barbiturates Screen NEGATIVE 07/19/19 07:20 Ur Phencyclidine Scrn NEGATIVE 07/19/19 07:20 Ur Amphetamines Screen NEGATIVE 07/19/19 07:20 U Benzodiazepines Scrn NEGATIVE 07/19/19 07:20 Urine Cocaine Screen NEGATIVE 07/19/19 07:20 U Marijuana (THC) Screen NEGATIVE 07/19/19 07:20 Blood Type A POSITIVE 07/19/19 07:25 Antibody Screen NEGATIVE 07/19/19 07:25 Plan Plan of Treatment: d/c home, pt needs incision check w/ [facility] in one week Time Spent: Less than 30 Minutes
[2019-07-22] MEDS: PRENATAL VITAMIN W DHA CAPSULE PO SCH (11:38)
[2019-07-22] MEDS: DOCUSATE SODIUM 100 MG CAPSULE PO SCH (11:38)
[2019-07-22 12:03] VITALS: BP 111/62
[2019-07-22] MEDS: OXYCODONE-ACETAMINOPHEN 5-325 MG TABLET PO PRN (12:14)
== END 2019-07-22 12:42 | disposition home or self-care (01) | DRG 785 ==
LOC: 2S 06:01
PROVIDERS: ADMIT Obstetrics & Gynecology Gynecology; ATTEND Obstetrics & Gynecology Gynecology
PROC: 0UL70CZ Occlusion of Bilateral Fallopian Tubes with Extraluminal Device, Open Approach (ICD-10-PCS; 2019-07-20)
PROC: 10D00Z1 Extraction of Products of Conception, Low, Open Approach (ICD-10-PCS; principal; 2019-07-20 09:00)
DX: O34.211 Maternal care for low transverse scar from previous cesarean delivery (principal); Z30.2 Encounter for sterilization; Z37.0 Single live birth; Z3A.39 39 weeks gestation of pregnancy
CPT/HCPCS: 1961; 36415; 59025; 80307; 81001; 85025; 85027; 86850; 86900; 86901; 94760; 94799; J0131; J0690; J1200; J1885; J2270; J2405; J2590; J3010; J3490; J7060; J7120; S0119